=== PATIENT | female | born 1940 | race Caucasian/White ===

== ENCOUNTER 2018-11-17 20:14 | Emergency (ER) | payer MEDICARE ==
[~2018-11-17] VITALS: Ht 165.1 cm; Wt 54.9 kg
[2018-11-17 20:20] VITALS: BP 120/49
--- NOTE | 2018-11-17 20:45 | ER.PDOC ---
General Chief Complaint: Requesting Medical Care Stated Complaint: BLOOD SUGAR LEVEL OFF TRAVEL OUT OF US: No Time seen by MD: 20:34 Source: patient Exam Limitations: no limitations History of Present Illness Initial Comments Pt is here, she was sent by BM, pt is upset, does not want to be seen, she expected BM would be here waiting for her, has no complaints whatsoever and does not want to give a history Timing/Duration: unsure Severity: mild Associated Symptoms: denies symptoms Allergies: Coded Allergies: codeine (Verified Allergy, Unknown, 03/29/17) Home Meds Reported Medications Carvedilol 25MG (COREG 25MG) 25 Mg Tablet, 1 TAB PO BID, #60 TAB 5 Refills 05/27/16 Pantoprazole Sodium (PANTOPRAZOLE SODIUM) 40 Mg Tablet.dr, 1 TAB PO DAILY, #30 TAB 3 Refills 05/27/16 Atorvastatin 40MG (LIPITOR 40MG) 40 Mg Tablet, 1 TAB PO HS, #90 TAB 1 Refill 05/27/16 Glyburide/Metformin Hcl (GLYBURIDE-METFORMIN 5-500 MG) 1 Each Tablet, 1 EACH PO DAILY, TABLET 05/27/16 Spironolactone 50MG (ALDACTONE 50MG) 50 Mg Tablet, 1 TAB PO DAILY, #30 TAB 3 Refills 05/27/16 Furosemide (FUROSEMIDE) 40 Mg Tablet, 1 TAB PO DAILY, #30 TAB 5 Refills 05/27/16 Sacubitril/Valsartan (Entresto 49 mg-51 mg Tablet) 1 Each Tablet, 1 EACH PO DAILY, TABLET 05/27/16 Levothyroxine Sodium (LEVOTHYROXINE SODIUM) 75 Mcg Tablet, 1 TAB PO DAILY, #30 TAB 5 Refills 05/27/16 Past Medical History Surgical History: coronary bypass surgery, pacemaker/ICD Social History Drug Use: none Review of Systems All Other Systems: Reviewed and Negative Physical Exam Comments Pt does no allow examination Results/Orders Results/Orders Orders - DANA SPRING MD Cbc With Auto Diff (11/17/18 21:02) Comprehensive Metabolic Panel (11/17/18 21:02) Amylase (11/17/18 21:02) Lipase (11/17/18 21:02) PT (11/17/18 21:02) Partial Thromboplastin Time. (11/17/18 21:02) Urinalysis (11/17/18 21:02) Vital Signs Date Time Temp Pulse Resp B/P (MAP) Pulse Ox O2 Delivery O2 Flow Rate FiO2 10/12/18 00:42 66 Laboratory Tests Test 11/17/18 21:07 White Blood Count 7.1 10^3/uL (4.5-11.0) Red Blood Count 3.81 10^6/uL (4.00-5.20) L Hemoglobin 11.8 g/dL (12.0-15.0) L Hematocrit 33.8 % (36.0-46.0) L Mean Corpuscular Volume 88.7 fL (78-100) Mean Corpuscular Hemoglobin 31.0 pg (26-34) Mean Corpuscular Hemoglobin Concent 34.9 g/dL (33-37) Red Cell Distribution Width 12.4 % (11.5-14.5) Platelet Count 183 10^3/uL (150-400) Mean Platelet Volume 10.5 fL (7.8-11.0) Neutrophils (%) (Auto) 73.0 % (41.0-85.0) Lymphocytes (%) (Auto) 19.1 % (24.0-44.0) L Monocytes (%) (Auto) 7.4 % (5.0-12.0) Neutrophils # (Auto) 5.2 10^3/uL (1.8-7.7) Lymphocytes # (Auto) 1.4 10^3/uL (1.0-4.8) Monocytes # (Auto) 0.5 10^3/uL (0.3-0.8) Absolute Immature Granulocyte (auto 0 10^3 u/L (0-2) Immature Granulocytes % 0.00 % (0.00-0.50) Eosinophils % 0.1 % (0.0-5.0) Basophils % 0.4 % (0.0-0.2) H Basophils # 0.0 10^3/uL (0.0-0.1) Eosinophil Count 0.0 10^3/uL (0.0-0.2) Prothrombin Time 11.6 SEC (9.8-11.9) Prothrombin Time INR (Non-Therap) 1.2 PTT 25.1 SEC (24.67-30.72) Sodium Level 136 mmol/L (132-145) Potassium Level 4.5 mmol/L (3.6-5.2) Chloride Level 98.0 mmol/L (96-109) Carbon Dioxide Level 30.1 mmol/L (20.0-32) Anion Gap 12.4 Blood Urea Nitrogen 31 mg/dL (7-18) H Creatinine 1.40 mg/dL (0.59-1.40) Estimated GFR () 44.1 (>/=60) BUN/Creatinine Ratio 22.0 Glucose Level 237 mg/dL (70-110) H Calcium Level 9.5 mg/dL (8.4-10.5) Total Bilirubin 0.6 mg/dL (0.2-1.0) Aspartate Amino Transferase (AST) 16 U/L (0-35) Alanine Aminotransferase (ALT) 16 U/L (12-78) Alkaline Phosphatase 60 U/L (50-136) Total Protein 6.8 g/dL (6.4-8.2) Albumin 3.9 g/dL (3.4-5.0) Globulin 2.9 Amylase Level 109 U/L (25-115) Lipase 228 U/L (114-286) Progress Progress Normal labs Departure Time of Disposition: 21:54 Disposition: 01 HOME, SELF-CARE Impression: Primary Impression: Well adult exam Condition: Stable Referrals: ABDIRASHID VELÁZQUEZ MANUFACTURING DIRECTOR (PCP) PRIMARY CARE PROVIDER Duration or Time Spent with Pa: DANA DAVISON MD Nov 17, 2018 20:45
[2018-11-17 21:18] LABS: BASOPHIL % 0.4 % (0.0-0.2); EOSINOPHIL % 0.1 % (0.0-5.0); HEMOGLOBIN 11.8 g/dL (12.0-15.0); LYMPHOCYTES # 1.4 10^3/uL (1.0-4.8); LYMPHOCYTES % 19.1 % (24.0-44.0); MEAN CELL HGB CONCENTRATION 34.9 g/dL (33-37); MEAN CORP VOLUME 88.7 fL (78-100); MEAN PLATELET VOLUME 10.5 fL (7.8-11.0); MONOCYTES # 0.5 10^3/uL (0.3-0.8); MONOCYTES % 7.4 % (5.0-12.0); NEUTROPHIL # 5.2 10^3/uL (1.8-7.7); RED CELL DISTRIBUTION WIDTH 12.4 % (11.5-14.5); WHITE BLOOD CELL 7.1 10^3/uL (4.5-11.0)
[2018-11-17 21:39] LABS: CALCIUM 9.5 mg/dL (8.4-10.5); CARBON DIOXIDE 30.1 mmol/L (20.0-32)
[2018-11-17 22:00] VITALS: BP 146/59
[2018-11-18 01:50] VITALS: BP 120/49
== END 2018-11-17 22:01 | disposition home or self-care (01) ==
LOC: ER 20:14
DX: Z71.1 Person with feared health complaint in whom no diagnosis is made (principal); Z88.5 Allergy status to narcotic agent; Z95.0 Presence of cardiac pacemaker; Z79.899 Other long term (current) drug therapy
CPT/HCPCS: 80053; 82150; 83690; 85025; 85610; 85730; 99284

== ENCOUNTER → 2018-11-17 | Outpatient (CLI) | payer MEDICARE ==
[~2018-11-17] MED LIST: ATOR40TA PO; CARV25TA PO; FURO40TA4 PO; GLYB1TAB15 PO; LEVO75TA6 PO; PANT40TA5 PO; SACU1TAB7 PO; SPIR50TA PO
[2018-11-17 12:09] LABS: HEMOGLOBIN 12.9 g/dL (12.0-15.0); MEAN CELL HGB 30.9 pg (26-34); MEAN CELL HGB CONCENTRATION 34.5 g/dL (33-37); MEAN CORP VOLUME 89.7 fL (78-100); MEAN PLATELET VOLUME 10.3 fL (7.8-11.0); RED CELL DISTRIBUTION WIDTH 12.4 % (11.5-14.5); WHITE BLOOD CELL 7.5 10^3/uL (4.5-11.0)
[2018-11-17 12:24] LABS: CALCIUM 9.8 mg/dL (8.4-10.5); CARBON DIOXIDE 32.1 mmol/L (20.0-32)
--- NOTE | 2018-11-17 16:25 | DIREP ---
PROCEDURE:CT ABDOMEN/PELVIS W/O CONTRAST COMPARISON:[facility], CR, XRAY CHEST SINGLE VW, 10/11/2018, 08:42 PM. INDICATIONS:R10.12 LUQ PAIN TECHNIQUE:Axial images were created through the abdomen and pelvis without intravenous contrast material. No oral contrast was administered. Sagittal and coronal reconstructions were performed from source images. FINDINGS: LUNG BASES:Cardiomegaly. Pacemaker wire LIVER:Normal. No significant liver lesions are identified. BILIARY:2 small calcified gallstones PANCREAS:Normal. No lesion, fluid collection, ductal dilatation, or atrophy. SPLEEN:Normal. No enlargement or focal lesion. ADRENALS:Normal. No mass or enlargement. URINARY TRACT:Renal arterial calcifications including intrarenal components. No nephrolithiasis or hydronephrosis. No ureteric stones detected AORTA/VASCULAR:Extensive atherosclerotic calcifications in the celiac axis, superior mesenteric artery renal arteries and pelvic branches. RETROPERITONEUM:Normal. No mass or adenopathy. BOWEL/MESENTERY:Normal. There is no intestinal obstruction, free fluid, free air or mesenteric inflammatory changes. ABDOMINAL WALL:Normal. No mass or hernia. PELVIC ORGANS:Normal. No visible mass. Pelvic organs appropriate for patient age. BONES:No compression fractures OTHER:Negative. CONCLUSION:No focal inflammation or abnormal fluid collection. Extensive vasculopathy based on dense atherosclerotic calcifications in abdominal and pelvic vasculature. Cardiomegaly. Two small gallstones. No ductal dilatation. Dictated by: Ronna Hazel MD on 11/17/2018 at 04:17 PM
== END | disposition home or self-care (01) ==
LOC: RAD 11:48
PROVIDERS: ATTEND Nurse Practitioner Family
DX: K80.20 Calculus of gallbladder without cholecystitis without obstruction (principal); I70.0 Atherosclerosis of aorta; I51.7 Cardiomegaly; Z95.0 Presence of cardiac pacemaker
CPT/HCPCS: 36415; 74176; 80053; 82150; 83690; 85027

== ENCOUNTER → 2018-11-18 | Outpatient (CLI) | payer MEDICARE | END | disposition home or self-care (01) | LOC: LAB 12:51 | PROVIDERS: ATTEND Nurse Practitioner Family | DX: K92.1 Melena (principal) | CPT/HCPCS: 82272 ==

== ENCOUNTER 2018-11-19 10:05 | Emergency (ER) | payer MEDICARE ==
[~2018-11-19] VITALS: Ht 165.1 cm; Wt 54.9 kg
--- NOTE | 2018-11-19 10:15 | NUR ---
arrival patient ambulated to er 4 accompanied by spouse and this nurse. gait steady. patient guarding abd. Patient c/o of abd pain to RLQ. has been in 2 x prior with the same complaint. triage done. Dr. Salazar in at bedside assessing patient.
[2018-11-19 10:25] VITALS: BP 144/65
[2018-11-19] MEDS ORDERED: ZOFRAN ODT SL STA (10:35)
--- NOTE | 2018-11-19 10:40 | ER.PDOC ---
General Chief Complaint: Abdomen Pain Stated Complaint: ABD PAIN Time seen by MD: 10:33 Source: patient Exam Limitations: no limitations History of Present Illness Timing/Duration: 1 week Severity/Quality: moderate, cramping Radiation: no radiation Exacerbated by: food Allergies: Coded Allergies: codeine (Verified Allergy, Unknown, 03/29/17) Home Meds Reported Medications Carvedilol 25MG (COREG 25MG) 25 Mg Tablet, 1 TAB PO BID, #60 TAB 5 Refills 05/27/16 Pantoprazole Sodium (PANTOPRAZOLE SODIUM) 40 Mg Tablet.dr, 1 TAB PO DAILY, #30 TAB 3 Refills 05/27/16 Atorvastatin 40MG (LIPITOR 40MG) 40 Mg Tablet, 1 TAB PO HS, #90 TAB 1 Refill 05/27/16 Glyburide/Metformin Hcl (GLYBURIDE-METFORMIN 5-500 MG) 1 Each Tablet, 1 EACH PO DAILY, TABLET 05/27/16 Spironolactone 50MG (ALDACTONE 50MG) 50 Mg Tablet, 1 TAB PO DAILY, #30 TAB 3 Refills 05/27/16 Furosemide (FUROSEMIDE) 40 Mg Tablet, 1 TAB PO DAILY, #30 TAB 5 Refills 05/27/16 Sacubitril/Valsartan (Entresto 49 mg-51 mg Tablet) 1 Each Tablet, 1 EACH PO DAILY, TABLET 05/27/16 Levothyroxine Sodium (LEVOTHYROXINE SODIUM) 75 Mcg Tablet, 1 TAB PO DAILY, #30 TAB 5 Refills 05/27/16 Vital Signs First Vital Signs Date Time Temp Pulse Resp B/P (MAP) Pulse Ox O2 Delivery O2 Flow Rate FiO2 11/18/18 01:50 67 Last Vital Signs Date Time Temp Pulse Resp B/P (MAP) Pulse Ox O2 Delivery O2 Flow Rate FiO2 11/18/18 01:50 67 Past Medical History Medical History: arrhythmia, cardiac problems, congestive heart failure, diabetes, hypertension, thyroid disease Surgical History: cardiac cath, angioplasty, coronary bypass surgery, p acemaker/ICD, stent LMP (females 10-50): postmenopause Social History Smoking: non-smoker Alcohol Use: none Drug Use: none Reviewed Nursing Reviewed: Vital Signs, Abn. Noted All Other Systems: Reviewed and Negative Physical Exam General Appearance: No Apparent Distress, WD/WN HEENT: PERRL/EOMI, Normal ENT Inspection, TMs Normal, Pharynx Normal Neck: Non-Tender, Full Range of Motion, Supple, Normal Inspection Respiratory: chest non-tender, lungs clear, normal breath sounds, no respiratory distress, no accessory muscle use Cardiovascular: Normal Peripheral Pulses, Regular Rate, Rhythm, No Edema, No Gallop, No JVD, No Murmur 1 - tender Gastrointestinal: Tenderness (periumbilical) Back: Normal Inspection, No CVA Tenderness, No Vertebral Tenderness Extremities: Normal Range of Motion, Non-Tender, Normal Inspection, No Pedal Edema, No Calf Tenderness, Normal Capillary Refill, Pelvis Stable Neurologic/Psychiatric: braille transcriber II-XII NML as Tested, No Motor/Sensory Deficits, Alert, Normal Mood/Affect, Oriented x 3 Skin: Normal Color, Warm/Dry Lymphatic: No Adenopathy Results/Orders Results/Orders Orders - ALBERTO MENDOZA MD Cbc With Auto Diff (11/19/18 10:23) Comprehensive Metabolic Panel (11/19/18 10:23) Amylase (11/19/18 10:23) Lipase (11/19/18 10:23) Helicobacter Pylori (11/19/18 10:23) PT (11/19/18 10:23) Partial Thromboplastin Time. (11/19/18 10:23) Urinalysis (11/19/18 10:23) Cta Abdominal Arteries (11/19/18 10:23) Course Sepsis Screening Results: Posi: POSITIVE SEPSIS RISK Duration or Total Time Spent w: 20 Sepsis Infection Criteria Pres: None O2 Sat by Pulse Oximetry: 99 Departure Time of Disposition: 13:33 Disposition: 01 HOME, SELF-CARE Impression: Primary Impression: Pancreatitis Additional Impression: Mesenteric ischemia Condition: Improved Referrals: ABDIRASHID VELÁZQUEZ BAND CUTTER (PCP) PRIMARY CARE PROVIDER Comments admission offered, patient deferred it Duration or Time Spent with Pa: 1 hr Problem Qualifiers ALBERTO MENDOZA MD Nov 19, 2018 10:40
[2018-11-19 10:43] LABS: BASOPHIL % 0.4 % (0.0-0.2); EOSINOPHIL % 0.4 % (0.0-5.0); HEMOGLOBIN 12.7 g/dL (12.0-15.0); LYMPHOCYTES # 1.2 10^3/uL (1.0-4.8); LYMPHOCYTES % 23.8 % (24.0-44.0); MEAN CELL HGB 31.1 pg (26-34); MEAN CELL HGB CONCENTRATION 34.9 g/dL (33-37); MEAN PLATELET VOLUME 10.4 fL (7.8-11.0); MONOCYTES # 0.3 10^3/uL (0.3-0.8); MONOCYTES % 6.3 % (5.0-12.0); NEUTROPHIL # 3.5 10^3/uL (1.8-7.7); NEUTROPHILS % 69.1 % (41.0-85.0); RED CELL DISTRIBUTION WIDTH 12.3 % (11.5-14.5); WHITE BLOOD CELL 5.1 10^3/uL (4.5-11.0)
--- NOTE | 2018-11-19 10:51 | PCM.EKG ---
[facility] Test Date: 2018-11-19 Test Time: 10:51:14 Pat Name: SAMUEL POSADA Department: Room: Gender: F Cocoa Roaster: DUSTIN : 1940 Requested By: ALBERTO MENDOZA Order Number: [id number] Reading MD: Measurements Intervals [place] Rate: 65 P: 73 NC: 280 QRS: -67 QRSD: 146 T: 93 QT: 444 QTc: 461 Interpretive Statements Sinus rhythm with 1st degree AV block Left axis deviation Left ventricular hypertrophy with QRS widening and repolarization abnormality Abnormal ECG Compared to ECG 10/11/2018 20:14:42 Left-axis deviation now present Left ventricular hypertrophy now present Early repolarization now present Left bundle-branch block no longer present Please click the below link to view image of tracing.
[2018-11-19] MEDS ORDERED: ZOFRAN ODT ONE (10:54)
[2018-11-19] MEDS ORDERED: NORCO 7.5MG PO STA (10:54)
[2018-11-19] MEDS ORDERED: NORCO 7.5MG PO ONE (10:55)
--- NOTE | 2018-11-19 11:02 | NUR ---
pain medication patient refused pain medication. "I dont need that right now. I don't want anythign thats gonna upset my stomach." Patient explained that zofran will help with getting an upset stomach. Patietn continued to refuse. notified.
[2018-11-19 11:13] LABS: CARBON DIOXIDE 30.3 mmol/L (20.0-32)
[2018-11-19 11:14] LABS: CALCIUM 9.5 mg/dL (8.4-10.5)
[2018-11-19 11:52] LABS: BILIRUBIN,URINE NEGATIVE (NEGATIVE); UROBILINOGEN,URINE NORMAL (NEGATIVE)
[2018-11-19 11:53] LABS: APPEARANCE,URINE CLEAR (CLEAR); UA COLOR STRAW (YELLOW)
[2018-11-19 12:25] VITALS: BP 125/68
[2018-11-19] MEDS ORDERED: NITRO-DUR 0.4MG PATCH TD ONE (12:27)
--- NOTE | 2018-11-19 13:14 | DIREP ---
PROCEDURE:CTA ABDOMEN WITH CONTRAST COMPARISON:[facility], CT, CT ABD/PELVIS W/O, 11/17/2018, 12:37 PM. INDICATIONS:Chronic mesenteric ischemia. TECHNIQUE:After obtaining the patient's consent, CTA images of the abdomen and pelvis were created with non-ionic intravenous contrast, and with multi-planar/3-D imaging to optimize visualization of vascular anatomy. FINDINGS: AORTA/VASCULAR:No aortic aneurysmal dilatation or evidence of dissection. Diffuse atherosclerotic calcification. Origins of the celiac artery and ESSIE appear patent. SMA atherosclerotic calcification contributes to approximately 60-70% stenosis at the origin. Otherwise, remainder of the visualized portions of the proximal SMA appear patent. Approximately 75% stenosis of the origin of the left renal artery. Two right renal arteries are identified arising from the abdominal aorta. LIVER:No focal lesion identified. BILIARY:Layering gallbladder calculi without evidence of surrounding inflammatory change. Prominent CBD, measuring up to 9 mm. No evidence radiopaque stone. PANCREAS:No focal lesion or surrounding inflammatory change. SPLEEN:Normal. KIDNEYS:Bilateral parapelvic cysts. Kidneys enhance symmetrically without hydronephrosis. No nephrolithiasis or ureteral calculi. Visualized portions of the urinary bladder within normal limits. ADRENALS:Normal. RETROPERITONEUM:No mass or adenopathy. BOWEL/MESENTERY:No free air. Oral contrast opacifies the distal colon. No small bowel dilatation to suggest obstruction. Appendix not definitively identified. Fecal residue seen throughout colon. Colonic diverticulosis without evidence of diverticulitis. ABDOMINAL WALL:No mass or hernia. Probable small anterior abdominal wall lipoma. PELVIC ORGANS:No visible mass. Pelvic organs appropriate for patient's age. BONES:Degenerative change without evidence of acute osseous abnormality. OTHER:None. CONCLUSION: 1. 60-70% stenosis of the SMA origin. Remainder of the visualized portions are patent. 2. 75% stenosis of the origin of the left renal artery. Two right renal arteries are identified. 3. No bowel obstruction. Diverticulosis without evidence of diverticulitis. 4. Cholelithiasis without evidence of cholecystitis. 5. Additional findings as described. This report was called by telephone at 12:55 pm on November 19, 2018 to Jordan Salazar. Dictated by: Elijah Parsons MD on 11/19/2018 at 12:40 PM
[2018-11-19 13:50] VITALS: BP 125/68
[2018-11-20] MEDS ORDERED: NITRO-DUR 0.4MG PATCH TD SCH (09:00)
== END 2018-11-19 13:50 | disposition home or self-care (01) ==
LOC: ER 10:05
DX: K80.20 Calculus of gallbladder without cholecystitis without obstruction (principal); K85.90 Acute pancreatitis without necrosis or infection, unspecified; K55.059 Acute (reversible) ischemia of intestine, part and extent unspecified; E07.9 Disorder of thyroid, unspecified; E11.9 Type 2 diabetes mellitus without complications; I11.0 Hypertensive heart disease with heart failure; I50.9 Heart failure, unspecified; Z79.899 Other long term (current) drug therapy; Z88.5 Allergy status to narcotic agent; Z95.0 Presence of cardiac pacemaker; Z95.1 Presence of aortocoronary bypass graft
CPT/HCPCS: 36415 ×2; 75635; 80053; 82010; 82150; 82550; 82553; 82803; 83690; 84484; 85025; 85610; 85730; 86677; 93005; 99285; Q0162; Q9965

== ENCOUNTER 2018-12-04 10:14 | Emergency (ER) | payer MEDICARE ==
[~2018-12-04] VITALS: Ht 165.1 cm; Wt 56.7 kg
[2018-12-04 10:33] VITALS: BP 144/64
--- NOTE | 2018-12-04 10:34 | NUR ---
ARRIVAL PATIENT ARRIVED TO ED5 AMBULATORY, C/O OF RIGHT SHOULDER AND ARM PAIN, PATIENT STATES SHE WAS PUTTING HER DOG ON A LEASH ON THE PORCH WHEN THE DOG PULLED HER DOWN LANDING ON HER RIGHT ARM, SHE FELL TO THE GROUND, DENIES LOC OR ANY OTHER INJURY, CAME TO THE ED FOR EVAL AND XRAY
[2018-12-04] MEDS ORDERED: MORPHINE SULFATE IV STA (10:39)
--- NOTE | 2018-12-04 10:48 | ER.PDOC ---
General Chief Complaint: Trauma Stated Complaint: FALL RT SHOULDER INJURY Time seen by MD: 10:43 Source: patient Exam Limitations: no limitations History of Present Illness Initial Comments Right shoulder/arm pain S/P fall. Got tangled with her dog. No neck pain or headache. No loss of consciousness. Occurred: just prior to arrival Where: home Injuries/Pain Location: upper extremity Context: Tripped Loss of Consciousness: No Loss of Consciousness Associated Symptoms: denies symptoms Allergies: Coded Allergies: codeine (Verified Allergy, Unknown, 03/29/17) MEDS Reported Medications Carvedilol 25MG (COREG 25MG) 25 Mg Tablet, 1 TAB PO BID, #60 TAB 5 Refills 05/27/16 Pantoprazole Sodium (PANTOPRAZOLE SODIUM) 40 Mg Tablet.dr, 1 TAB PO DAILY, #30 TAB 3 Refills 05/27/16 Atorvastatin 40MG (LIPITOR 40MG) 40 Mg Tablet, 1 TAB PO HS, #90 TAB 1 Refill 05/27/16 Glyburide/Metformin Hcl (GLYBURIDE-METFORMIN 5-500 MG) 1 Each Tablet, 1 EACH PO DAILY, TABLET 05/27/16 Spironolactone 50MG (ALDACTONE 50MG) 50 Mg Tablet, 1 TAB PO DAILY, #30 TAB 3 Refills 05/27/16 Furosemide (FUROSEMIDE) 40 Mg Tablet, 1 TAB PO DAILY, #30 TAB 5 Refills 05/27/16 Sacubitril/Valsartan (Entresto 49 mg-51 mg Tablet) 1 Each Tablet, 1 EACH PO DAILY, TABLET 05/27/16 Levothyroxine Sodium (LEVOTHYROXINE SODIUM) 75 Mcg Tablet, 1 TAB PO DAILY, #30 TAB 5 Refills 05/27/16 Past Medical History Medical History: cardiac problems, diabetes Surgical History: cardiac cath, coronary bypass surgery, pacemaker/ICD Social History Smoking: non-smoker Alcohol Use: none Drug Use: none Review of Systems Constitutional: no symptoms reported Respiratory: no symptoms reported Cardiovascular: no symptoms reported Gastrointestinal: no symptoms reported Musculoskeletal: see HPI All Other Systems: Reviewed and Negative Physical Exam General Appearance: No Apparent Distress, WD/WN Head: No Evidence of Injury Ears, Nose, Mouth, Throat: Hearing Grossly Normal, No Evidence of ENT Injury, No Dental Injury Neck: Non-Tender, Normal Alignment, Nexus criteria neg, Normal Inspection Cardiovascular/Respiratory: Regular Rate, Rhythm, No M/R/G, Normal Peripheral Pulses, No JVD, Normal Breath Sounds, No Respiratory Distress Gastrointestinal: Normal Bowel Sounds, No Organomegaly, No Pulsatile Mass, Non Tender, Soft Back: Normal Inspection, No CVA Tenderness, No Vertebral Tenderness Extremities: Tenderness (right arm with swelling and deformity.) Neurologic/Psychiatric: crosstie inspector II-XII NML as Tested, No Motor/Sensory Deficits, Alert, Normal Mood/Affect, Oriented x 3 Angeline Coma Score Best Eye Response: (4) Open Spontaneously Best Verbal Response: (5) Oriented Best Motor Response: (6) Obeys Commands Results/Orders Results/Orders Orders - SHANE DUARTE MD Xr Shoulder Rt 2v (12/04/18 10:39) Morphine Sulfate (Morphine Sulfate) (12/04/18 10:39) Ct Rt Upper Ext Wo (12/04/18 11:50) Vital Signs Date Time Temp Pulse Resp B/P (MAP) Pulse Ox O2 Delivery O2 Flow Rate FiO2 12/04/18 10:33 97.2 63 18 144/64 (90) 99 Room Air 97.2 12/04/18 10:31 18 12/04/18 10:30 97.2 63 18 99 Room Air 97.2 12/04/18 10:29 97.2 63 18 97.2 11/19/18 13:50 76 Administered Medications Medications (Trade) Dose Ordered Sig/Mayur Route PRN Reason Start Time Stop Time Status Last Admin Dose Admin Morphine Sulfate (Morphine Sulfate) 2 mg STAT STAT IV 12/04/18 10:39 12/04/18 10:43 DC 12/04/18 10:[address] Nguyễn came and saw patient in the ED. She will follow up with him in 3 days. EKG/XRAY/CT/US XRAY Comments: Comminuted impacted fracture of the proximal humerus. Departure Time of Disposition: 11:52 Disposition: 01 HOME, SELF-CARE Impression: Primary Impression: Humerus fracture Condition: Stable Referrals: ABDIRASHID VELÁZQUEZ FLANGE TURNER (PCP) PRIMARY CARE PROVIDER Additional Instructions: Take medication as prescribed F/U with Dr. Nguyễn on 11/07/18 , call for appointment time. Duration or Time Spent with Pa: 60 mins Problem Qualifiers Primary Impression: Humerus fracture Encounter type: initial encounter Humerus Location: proximal Fracture type: closed Fracture morphology: other fracture Fracture alignment: displaced Laterality: right Qualified Codes: S42.291A - Other displaced fracture of upper end of right humerus, initial encounter for closed fracture SHANE DUARTE MD Dec 04, 2018 10:48
--- NOTE | 2018-12-04 11:29 | NUR ---
RIZWAN DOCTOR FELICIA CALLED DOCTOR ASTORGA, HE WILL COME TO THE ED TO SEE PATIENT.
--- NOTE | 2018-12-04 11:34 | DIREP ---
PROCEDURE:XRAY SHOULDER MIN 2 VWS-RT COMPARISON:[facility], , XRAY CHEST SINGLE VW, 10/11/2018, 08:42 PM. INDICATIONS:Pain S/P fall FINDINGS: BONES:Impacted comminuted fracture of the proximal right humerus. JOINTS:Normal glenohumeral and acromioclavicular joints. No evidence for dislocation. SOFT TISSUES:Rounded calcification along the lateral aspect of the chest, this is chronic OTHER:Normal. CONCLUSION:Comminuted impacted fracture of the proximal humerus. Dictated by: Michel Huizar MD on 12/04/2018 at 11:33 AM
[2018-12-04] MEDS ORDERED: NORCO 10MG PO STA (11:57)
[2018-12-04] MEDS ORDERED: NORCO 10MG PO ONE (12:06)
--- NOTE | 2018-12-04 12:23 | HPH ---
ADMIT DATE: 12/04/2018 CHIEF COMPLAINT: Painful right shoulder. HISTORY OF PRESENT ILLNESS: The patient is a 78-year-old female still very active, fell coming out of some steps at her home today when she tripped up on her dog and landed on the right shoulder. She was seen in the emergency room by Dr. Moran whose exam and x-rays revealed a displaced comminuted right proximal humerus fracture. PHYSICAL EXAMINATION: Shows that she has diffuse swelling about the shoulder. She has no fracture blisters or open wounds. The radial pulse is 2+. She has normal sensation about the right hand. The radial nerve was intact. IMAGING STUDIES: Her x-rays show she got a comminuted displaced right proximal humerus fracture. ASSESSMENT: Displaced right proximal humerus fracture, closed with significant swelling. PLAN: The patient will get a CT scan today with 3D reconstruction. She will be placed in a shoulder immobilizer. I gave her a prescription for tramadol for the pain. We talked about using ice 3-4 times a day and to sleep in a recliner. She will be seen in my office in approximately 2 days. Donte Nguyễn MD DR: PARVEZ/mary kay JOB# [id number]
--- NOTE | 2018-12-04 12:38 | DIREP ---
PROCEDURE:CT UPPER EXTREMITY-RT W/O COMPARISON:None. INDICATIONS:Right humeral fracture TECHNIQUE:Multi-planar CT images of the upper extremity were created without intravenous contrast. FINDINGS: BONES:There is a comminuted fracture of the proximal humerus. The fracture appears to spare the humeral articular surface. There multiple fragments along the biceps groove. Fracture of the scapula is not identified. Loose body is not seen. There preexisting degenerative changes. Apparent rotator cuff repair. Distal clavicle intact. SOFT TISSUES:Mild soft tissue swelling and hematoma. OTHER:Negative. CONCLUSION:Comminuted impacted fracture of the proximal humerus Dictated by: Michel Huizar MD on 12/04/2018 at 12:32 PM
[2018-12-04 12:45] VITALS: BP 132/64
[2018-12-04 12:46] VITALS: BP 144/64
== END 2018-12-04 12:46 | disposition home or self-care (01) ==
LOC: ER 10:14
DX: S42.291A Other displaced fracture of upper end of right humerus, initial encounter for closed fracture (principal); E11.9 Type 2 diabetes mellitus without complications; Z79.899 Other long term (current) drug therapy; Z88.5 Allergy status to narcotic agent; Z95.0 Presence of cardiac pacemaker; Z95.1 Presence of aortocoronary bypass graft; W01.0XXA Fall on same level from slipping, tripping and stumbling without subsequent striking against object, initial encounter; Y93.89 Activity, other specified; Y92.89 Other specified places as the place of occurrence of the external cause; Y99.8 Other external cause status
CPT/HCPCS: 29105; 73200; 96374; 99285; 73030-RT

== ENCOUNTER 2018-12-12 15:05 | Emergency (ER) | payer MEDICARE ==
[~2018-12-12] VITALS: Ht 154.9 cm; Wt 60.8 kg
[2018-12-12 15:24] VITALS: BP 123/77
--- NOTE | 2018-12-12 15:26 | ER.PDOC ---
General Chief Complaint: Requesting Medical Care Stated Complaint: SHOULDER PAIN Time seen by MD: 15:33 Source: patient Exam Limitations: no limitations History of Present Illness Initial Comments TRANSIENT DYSPNEA, NONE NOW BEING TREATED FIR FRACTURE NECK HUMERUS R Occurred: yesterday Where: home Severity: mild Context: fall Associated Symptoms: unable to move shoulder Allergies: Coded Allergies: codeine (Verified Allergy, Unknown, 03/29/17) Home Meds Reported Medications Carvedilol 25MG (COREG 25MG) 25 Mg Tablet, 1 TAB PO BID, #60 TAB 5 Refills 05/27/16 Pantoprazole Sodium (PANTOPRAZOLE SODIUM) 40 Mg Tablet.dr, 1 TAB PO DAILY, #30 TAB 3 Refills 05/27/16 Atorvastatin 40MG (LIPITOR 40MG) 40 Mg Tablet, 1 TAB PO HS, #90 TAB 1 Refill 05/27/16 Glyburide/Metformin Hcl (GLYBURIDE-METFORMIN 5-500 MG) 1 Each Tablet, 1 EACH PO DAILY, TABLET 05/27/16 Spironolactone 50MG (ALDACTONE 50MG) 50 Mg Tablet, 1 TAB PO DAILY, #30 TAB 3 Refills 05/27/16 Furosemide (FUROSEMIDE) 40 Mg Tablet, 1 TAB PO DAILY, #30 TAB 5 Refills 05/27/16 Sacubitril/Valsartan (Entresto 49 mg-51 mg Tablet) 1 Each Tablet, 1 EACH PO DAILY, TABLET 05/27/16 Levothyroxine Sodium (LEVOTHYROXINE SODIUM) 75 Mcg Tablet, 1 TAB PO DAILY, #30 TAB 5 Refills 05/27/16 Past Medical History Surgical History: cardiac cath, coronary bypass surgery, pacemaker/ICD Social History Drug Use: none Reviewed Nursing Reviewed: Vital Signs, Abn. Noted Review of Systems All Other Systems: Reviewed and Negative Physical Exam General Appearance: Alert, No Apparent Distress Shoulder: swelling, ecchymosis, limited ROM Upper Extremities: uninjuried below shoulder Neuro: sensation nml, motor nml Vascular: no vascular compromise Skin: warm/dry Head/ENT: nml inspection, pharynx nml Neck/Back: non-tender, nml inspection, painless ROM Respiratory: chest non-tender, breath sounds nml CVS: reg rate & rhythm, heart sounds nml Abdomen: non-tender, no organomegaly Results/Orders Results/Orders Vital Signs Date Time Temp Pulse Resp B/P (MAP) Pulse Ox O2 Delivery O2 Flow Rate FiO2 12/04/18 12:46 207.0 63 12/04/18 12:45 97.2 Departure Time of Disposition: 16:00 Disposition: 01 HOME, SELF-CARE Impression: Primary Impression: Fx humeral neck Condition: Stable Referrals: ABDIRASHID VELÁZQUEZ CRM BUSINESS ANALYST (PCP) PRIMARY CARE PROVIDER Duration or Time Spent with Pa: 16 MIN ALBERTO MENDOZA MD Dec 12, 2018 15:26
[2018-12-12] MEDS ORDERED: NORCO 5MG PO STA (15:37)
[2018-12-12] MEDS ORDERED: ZOFRAN ODT ONE (15:37)
[2018-12-12] MEDS ORDERED: ZOFRAN ODT SL STA (15:37)
[2018-12-12] MEDS ORDERED: NORCO 5MG PO ONE (15:38)
[2018-12-12 15:48] VITALS: BP 123/77
== END 2018-12-12 15:50 | disposition home or self-care (01) ==
LOC: ER 15:05
DX: S42.201A Unspecified fracture of upper end of right humerus, initial encounter for closed fracture (principal); Z95.818 Presence of other cardiac implants and grafts; Z95.1 Presence of aortocoronary bypass graft; Z88.5 Allergy status to narcotic agent; Z95.0 Presence of cardiac pacemaker; Z79.899 Other long term (current) drug therapy; W19.XXXA Unspecified fall, initial encounter; Y93.89 Activity, other specified; Y92.098 Other place in other non-institutional residence as the place of occurrence of the external cause; Y99.8 Other external cause status
CPT/HCPCS: 99283; Q0162

== ENCOUNTER 2019-01-30 13:03 | Emergency (ER) | payer MEDICARE ==
[~2019-01-30] VITALS: Ht 165.1 cm; Wt 54.4 kg
[2019-01-30 13:23] VITALS: BP 146/66
--- NOTE | 2019-01-30 13:33 | ER.PDOC ---
General Chief Complaint: Abdomen Pain Stated Complaint: LOWER LEFT AB PAIN Time seen by MD: 13:25 Source: patient Exam Limitations: no limitations History of Present Illness Initial Comments Pt states she has been having LLQ abdominal pain for about 1 week, not at the moment, seen in [place], a scan was done and she was given medicine for constipation. She had pain on and off last night, but, is gone now. She is asymptomatic. Timing/Duration: 1 week Severity/Quality: mild Radiation: no radiation Associated Symptoms: denies symptoms Allergies: Coded Allergies: codeine (Verified Allergy, Unknown, 03/29/17) Home Meds Reported Medications Carvedilol 25MG (COREG 25MG) 25 Mg Tablet, 1 TAB PO BID, #60 TAB 5 Refills 05/27/16 Pantoprazole Sodium (PANTOPRAZOLE SODIUM) 40 Mg Tablet.dr, 1 TAB PO DAILY, #30 TAB 3 Refills 05/27/16 Atorvastatin 40MG (LIPITOR 40MG) 40 Mg Tablet, 1 TAB PO HS, #90 TAB 1 Refill 05/27/16 Glyburide/Metformin Hcl (GLYBURIDE-METFORMIN 5-500 MG) 1 Each Tablet, 1 EACH PO DAILY, TABLET 05/27/16 Spironolactone 50MG (ALDACTONE 50MG) 50 Mg Tablet, 1 TAB PO DAILY, #30 TAB 3 Refills 05/27/16 Furosemide (FUROSEMIDE) 40 Mg Tablet, 1 TAB PO DAILY, #30 TAB 5 Refills 05/27/16 Sacubitril/Valsartan (Entresto 49 mg-51 mg Tablet) 1 Each Tablet, 1 EACH PO DAILY, TABLET 05/27/16 Levothyroxine Sodium (LEVOTHYROXINE SODIUM) 75 Mcg Tablet, 1 TAB PO DAILY, #30 TAB 5 Refills 05/27/16 Vital Signs First Vital Signs Date Time Temp Pulse Resp B/P (MAP) Pulse Ox O2 Delivery O2 Flow Rate FiO2 12/12/18 15:48 67 01/30/19 13:18 97.7 16 01/30/19 13:18 100 Room Air 01/30/19 13:23 146/66 (92) Last Vital Signs Date Time Temp Pulse Resp B/P (MAP) Pulse Ox O2 Delivery O2 Flow Rate FiO2 01/30/19 13:23 97.7 69 16 146/66 (92) 100 Room Air Past Medical History Medical History: coronary artery disease, diabetes, GERD, high cholesterol, hypertension Surgical History: coronary bypass surgery Social History Smoking: non-smoker Alcohol Use: none Drug Use: none Gastrointestinal: see HPI All Other Systems: Reviewed and Negative Physical Exam General Appearance: No Apparent Distress, WD/WN HEENT: PERRL/EOMI, Normal ENT Inspection, TMs Normal, Pharynx Normal Neck: Non-Tender, Full Range of Motion, Supple, Normal Inspection Respiratory: chest non-tender, lungs clear, normal breath sounds, no respir atory distress, no accessory muscle use Cardiovascular: Normal Peripheral Pulses, Regular Rate, Rhythm, No Edema, No Gallop, No JVD, No Murmur Gastrointestinal: Normal Bowel Sounds, Non Tender, Soft Back: Normal Inspection, No CVA Tenderness, No Vertebral Tenderness Extremities: Normal Range of Motion, Non-Tender, Normal Inspection, No Pedal Edema, No Calf Tenderness, Normal Capillary Refill, Pelvis Stable Neurologic/Psychiatric: delivery rep II-XII NML as Tested, No Motor/Sensory Deficits, Alert, Normal Mood/Affect, Oriented x 3 Skin: Normal Color, Warm/Dry Lymphatic: No Adenopathy Results/Orders Results/Orders Orders - DANA SPRING MD Urinalysis (01/30/19 13:29) Vital Signs Date Time Temp Pulse Resp B/P (MAP) Pulse Ox O2 Delivery O2 Flow Rate FiO2 01/30/19 13:23 97.7 69 16 146/66 (92) 100 Room Air 01/30/19 13:18 97.7 69 16 100 Room Air 01/30/19 13:18 97.7 69 16 12/12/18 15:48 67 Laboratory Tests Test 01/30/19 13:29 Urine Collection Type VOID Urine Color YELLOW (YELLOW) Urine Appearance CLEAR (CLEAR) Urine Bilirubin NEGATIVE MG/DL (NEGATIVE) Urine Ketones NEGATIVE (NEGATIVE) Urine Specific [place] 1.010 (1.005-1.035) Urine pH 6 (5.0-6.0) Urine Protein NEGATIVE (NEGATIVE) Urine Urobilinogen NORMAL (NEGATIVE) Urine Nitrate NEGATIVE (NEGATIVE) Urine Leukocyte Esterase NEGATIVE (NEGATIVE) Urine Blood NEGATIVE (NEGATIVE) Urine Glucose NORMAL (NEGATIVE) Course Sepsis Screening Results: Posi: POSITIVE SEPSIS RISK Duration or Total Time Spent w: 16 MIN Vitals & review Data Vital Sign - Last 24 Hours 7/01/2301/30/19 01/30/19 01/30/19 15:48 13:18 13:18 13:23 Temp 97.7 97.7 97.7 Pulse 67 69 69 69 Resp 16 16 16 B/P (MAP) 146/66 (92) Pulse Ox 100 100 O2 Delivery Room Air Room Air Laboratory Tests Test 01/30/19 13:29 Urine Collection Type VOID Urine Color YELLOW Urine Appearance CLEAR Urine Bilirubin NEGATIVE MG/DL Urine Ketones NEGATIVE Urine Specific [place] 1.010 Urine pH 6 Urine Protein NEGATIVE Urine Urobilinogen NORMAL Urine Nitrate NEGATIVE Urine Leukocyte Esterase NEGATIVE Urine Blood NEGATIVE Urine Glucose NORMAL Sepsis Infection Criteria Pres: None O2 Sat by Pulse Oximetry: 100 Departure Time of Disposition: 14:18 Disposition: 01 HOME, SELF-CARE Impression: Primary Impression: Constipation Condition: Stable Referrals: ABDIRASHID VELÁZQUEZ YARROW GATHERER (PCP) PRIMARY CARE PROVIDER Duration or Time Spent with Pa: 15 DANA SPRING MD Jan 30, 2019 13:33
[2019-01-30 13:42] LABS: BILIRUBIN,URINE NEGATIVE (NEGATIVE); UROBILINOGEN,URINE NORMAL (NEGATIVE)
[2019-01-30 13:43] LABS: APPEARANCE,URINE CLEAR (CLEAR); UA COLOR YELLOW (YELLOW)
[2019-01-30 14:18] VITALS: BP 146/66
== END 2019-01-30 14:26 | disposition home or self-care (01) ==
LOC: ER 13:03
DX: K59.00 Constipation, unspecified (principal); K21.9 Gastro-esophageal reflux disease without esophagitis; I25.10 Atherosclerotic heart disease of native coronary artery without angina pectoris; I10 Essential (primary) hypertension; E78.00 Pure hypercholesterolemia, unspecified; E11.9 Type 2 diabetes mellitus without complications; Z79.899 Other long term (current) drug therapy; Z88.5 Allergy status to narcotic agent
CPT/HCPCS: 81002; 99283

== ENCOUNTER 2019-02-09 14:38 | Emergency (ER) | payer MEDICARE ==
[~2019-02-09] VITALS: Ht 165.1 cm; Wt 47.6 kg
[2019-02-09 15:09] VITALS: BP 145/77
[2019-02-09 15:32] VITALS: BP 145/77
[2019-02-09 15:38] LABS: BILIRUBIN,URINE NEGATIVE (NEGATIVE); UROBILINOGEN,URINE NORMAL (NEGATIVE)
[2019-02-09 15:41] LABS: APPEARANCE,URINE CLEAR (CLEAR); UA COLOR STRAW (YELLOW)
--- NOTE | 2019-02-09 15:55 | ER.PDOC ---
General Chief Complaint: Lower Back Pain or Injury Stated Complaint: LOWER BACK PAIN Time seen by MD: 15:35 Source: patient Exam Limitations: no limitations History of Present Illness Initial Comments Pt notes back pain past 3 days Timing/Duration: other Severity/Quality: moderate Method of Injury: unknown Modifying Factors: improves with immobilization, improves with rest Associated Symptoms: lower back pain Allergies: Coded Allergies: codeine (Verified Allergy, Unknown, 03/29/17) Home Meds Reported Medications Carvedilol 25MG (COREG 25MG) 25 Mg Tablet, 1 TAB PO BID, #60 TAB 5 Refills 05/27/16 Pantoprazole Sodium (PANTOPRAZOLE SODIUM) 40 Mg Tablet.dr, 1 TAB PO DAILY, #30 TAB 3 Refills 05/27/16 Atorvastatin 40MG (LIPITOR 40MG) 40 Mg Tablet, 1 TAB PO HS, #90 TAB 1 Refill 05/27/16 Glyburide/Metformin Hcl (GLYBURIDE-METFORMIN 5-500 MG) 1 Each Tablet, 1 EACH PO DAILY, TABLET 05/27/16 Spironolactone 50MG (ALDACTONE 50MG) 50 Mg Tablet, 1 TAB PO DAILY, #30 TAB 3 Refills 05/27/16 Furosemide (FUROSEMIDE) 40 Mg Tablet, 1 TAB PO DAILY, #30 TAB 5 Refills 05/27/16 Sacubitril/Valsartan (Entresto 49 mg-51 mg Tablet) 1 Each Tablet, 1 EACH PO DAILY, TABLET 05/27/16 Levothyroxine Sodium (LEVOTHYROXINE SODIUM) 75 Mcg Tablet, 1 TAB PO DAILY, #30 TAB 5 Refills 05/27/16 Past Medical History Medical History: coronary artery disease, cardiac problems, congestive heart failure, COPD, diabetes, GERD, high cholesterol, hypertension, thyroid disease Surgical History: cardiac cath, coronary bypass surgery, pacemaker/ICD Social History Smoking: non-smoker Alcohol Use: none Drug Use: none Review of Systems Constitutional: no symptoms reported EENTM: no symptoms reported Respiratory: no symptoms reported Cardiovascular: no symptoms reported Gastrointestinal: no symptoms reported Genitourinary: no symptoms reported Musculoskeletal: back pain Skin: no symptoms reported Psychiatric/Neurological: no symptoms reported Physical Exam General Appearance: No Apparent Distress, WD/WN HEENT: PERRL/EOMI, Normal ENT Inspection, TMs Normal, Pharynx Normal Neck: Non-Tender, Normal Alignment Cardiovascular/Respiratory: Regular Rate, Rhythm, No M/R/G, Normal Peripheral Pulses, No JVD, Normal Breath Sounds, No Respiratory Distress Gastrointestinal: Normal Bowel Sounds, No Organomegaly, No Pulsatile Mass, Non Tender, Soft Back: Normal Inspection, No CVA Tenderness, No Vertebral Tenderness 1 - tender Extremities: No Evidence of Injury, Normal Range of Motion, Non-Tender, No Pedal Edema, Pelvis Stable Neuro/Psych: Alert, hand lens polisher nml/symmetrical, mood/effect nml, No Motor/Sensory Deficits, Relexes nml Skin: Normal Color, Warm/Dry Results/Orders Results/Orders Orders - INLES MCKEON MD Urinalysis (02/09/19 15:33) Vital Signs Date Time Temp Pulse Resp B/P (MAP) Pulse Ox O2 Delivery O2 Flow Rate FiO2 02/09/19 15:32 97.8 70 16 145/77 (99) 100 Room Air 02/09/19 15:09 97.8 70 16 100 Room Air 02/09/19 15:09 97.8 70 16 01/30/19 14:18 69 Laboratory Tests Test 02/09/19 15:13 Urine Collection Type VOID Urine Color STRAW (YELLOW) Urine Appearance CLEAR (CLEAR) Urine Bilirubin NEGATIVE MG/DL (NEGATIVE) Urine Ketones NEGATIVE (NEGATIVE) Urine Specific [place] 1.005 (1.005-1.035) Urine pH 6 (5.0-6.0) Urine Protein NEGATIVE (NEGATIVE) Urine Urobilinogen NORMAL (NEGATIVE) Urine Nitrate NEGATIVE (NEGATIVE) Urine Leukocyte Esterase NEGATIVE (NEGATIVE) Urine Blood NEGATIVE (NEGATIVE) Urine Glucose NORMAL (NEGATIVE) Departure Time of Disposition: 15:54 Disposition: 01 HOME, SELF-CARE Impression: Primary Impression: Lumbar sprain Condition: Stable Referrals: ABDIRASHID VELÁZQUEZ RAILROAD CAR CHECKER (PCP) PRIMARY CARE PROVIDER Additional Instructions: Take otc ibuprofen 600 mg three times a day as needed. Follow up with PCP Duration or Time Spent with Pa: 10 NILES MCKEON MD Feb 09, 2019 15:55
[2019-02-09 16:08] VITALS: BP 145/77
== END 2019-02-09 16:08 | disposition home or self-care (01) ==
LOC: ER 14:38
DX: S33.5XXA Sprain of ligaments of lumbar spine, initial encounter (principal); E07.9 Disorder of thyroid, unspecified; E11.9 Type 2 diabetes mellitus without complications; E78.00 Pure hypercholesterolemia, unspecified; I11.0 Hypertensive heart disease with heart failure; I25.10 Atherosclerotic heart disease of native coronary artery without angina pectoris; I50.9 Heart failure, unspecified; J44.9 Chronic obstructive pulmonary disease, unspecified; K21.9 Gastro-esophageal reflux disease without esophagitis; Z79.899 Other long term (current) drug therapy; Z88.5 Allergy status to narcotic agent; Z95.0 Presence of cardiac pacemaker; Z95.1 Presence of aortocoronary bypass graft; Z79.84 Long term (current) use of oral hypoglycemic drugs; X58.XXXA Exposure to other specified factors, initial encounter; Y93.89 Activity, other specified; Y92.89 Other specified places as the place of occurrence of the external cause; Y99.8 Other external cause status
CPT/HCPCS: 81002; 99283

== ENCOUNTER 2019-04-24 13:29 | Emergency (ER) | payer MEDICARE ==
[~2019-04-24] VITALS: Ht 165.1 cm; Wt 61.2 kg
[2019-04-24 13:29] VITALS: BP 139/61
[2019-04-24 13:42] VITALS: BP 139/61
--- NOTE | 2019-04-24 14:23 | ER.PDOC ---
General Chief Complaint: Requesting Medical Care Stated Complaint: DIFFICULTY BREATHING Time seen by MD: 14:22 Source: patient Exam Limitations: no limitations History of Present Illness Timing/Duration: 1/2 hour Severity: mild Activities at Onset: rest Prior Episodes/Possible Cause: occasional episodes Allergies: Coded Allergies: codeine (Verified Allergy, Unknown, 03/29/17) Home Meds Reported Medications Carvedilol 25MG (COREG 25MG) 25 Mg Tablet, 1 TAB PO BID, #60 TAB 5 Refills 05/27/16 Pantoprazole Sodium (PANTOPRAZOLE SODIUM) 40 Mg Tablet.dr, 1 TAB PO DAILY, #30 TAB 3 Refills 05/27/16 Atorvastatin 40MG (LIPITOR 40MG) 40 Mg Tablet, 1 TAB PO HS, #90 TAB 1 Refill 05/27/16 Glyburide/Metformin Hcl (GLYBURIDE-METFORMIN 5-500 MG) 1 Each Tablet, 1 EACH PO DAILY, TABLET 05/27/16 Spironolactone 50MG (ALDACTONE 50MG) 50 Mg Tablet, 1 TAB PO DAILY, #30 TAB 3 Refills 05/27/16 Furosemide (FUROSEMIDE) 40 Mg Tablet, 1 TAB PO DAILY, #30 TAB 5 Refills 05/27/16 Sacubitril/Valsartan (Entresto 49 mg-51 mg Tablet) 1 Each Tablet, 1 EACH PO DAILY, TABLET 05/27/16 Levothyroxine Sodium (LEVOTHYROXINE SODIUM) 75 Mcg Tablet, 1 TAB PO DAILY, #30 TAB 5 Refills 05/27/16 Past Medical History Medical History: arrhythmia, asthma, congestive heart failure, diabetes, GERD, high cholesterol, hypertension, thyroid disease Surgical History: coronary bypass surgery, pacemaker/ICD LMP (females 10-50): hysterectomy Social History Smoking: non-smoker Alcohol Use: none Drug Use: none Reviewed Nursing Reviewed: Vital Signs, Abn. Noted Review of Systems All Other Systems: Reviewed and Negative Physical Exam General Appearance: No Apparent Distress, WD/WN HEENT: PERRL/EOMI, Normal ENT Inspection, TMs Normal, Pharynx Normal Neck: Non-Tender, Full Range of Motion, Supple, Normal Inspection Respiratory: chest non-tender, lungs clear, normal breath sounds, no respiratory distress, no accessory muscle use Cardiovascular: Normal Peripheral Pulses, Regular Rate, Rhythm, No Edema, No Gallop, No JVD, No Murmur Gastrointestinal: Normal Bowel Sounds, No Organomegaly, No Pulsatile Mass, Non Tender, Soft Extremities: Normal Range of Motion, Non-Tender, Normal Inspection, No Pedal Edema, No Calf Tenderness, Normal Capillary Refill Neurologic/Psychiatric: can tender II-XII NML as Tested, No Motor/Sensory Deficits, Alert, Normal Mood/Affect, Oriented x 3 Skin: Normal Color, Warm/Dry Lymphatic: No Adenopathy Results/Orders Results/Orders Orders - ALBERTO MENDOZA MD Cbc With Auto Diff (04/24/19 14:13) Comprehensive Metabolic Panel (04/24/19 14:13) Creatine Kinase (04/24/19 14:13) Creatine Kinase Mb (04/24/19 14:13) Troponin I (04/24/19 14:13) Probnp B-Type Hoisting Engineer (04/24/19 14:13) PT (04/24/19 14:13) Partial Thromboplastin Time. (04/24/19 14:13) Xr Chest 1v (04/24/19 14:13) Ekg-Routine (04/24/19 14:13) Vital Signs Date Time Temp Pulse Resp B/P (MAP) Pulse Ox O2 Delivery O2 Flow Rate FiO2 04/24/19 13:42 98.0 64 16 139/61 (87) 97 Room Air 04/24/19 13:29 98.0 64 16 04/24/19 13:29 98.0 64 16 97 Room Air Laboratory Tests Test 04/24/19 14:19 White Blood Count 4.2 10^3/uL (4.5-11.0) L Red Blood Count 3.77 10^6/uL (4.00-5.20) L Hemoglobin 11.7 g/dL (12.0-15.0) L Hematocrit 34.7 % (36.0-46.0) L Mean Corpuscular Volume 92.0 fL (78-100) Mean Corpuscular Hemoglobin 31.0 pg (26-34) Mean Corpuscular Hemoglobin Concent 33.7 g/dL (33-37) Red Cell Distribution Width 12.5 % (11.5-14.5) Platelet Count 186 10^3/uL (150-400) Mean Platelet Volume 10.4 fL (7.8-11.0) Neutrophils (%) (Auto) 65.6 % (41.0-85.0) Lymphocytes (%) (Auto) 26.7 % (24.0-44.0) Monocytes (%) (Auto) 6.7 % (5.0-12.0) Neutrophils # (Auto) 2.8 10^3/uL (1.8-7.7) Lymphocytes # (Auto) 1.1 10^3/uL (1.0-4.8) Monocytes # (Auto) 0.3 10^3/uL (0.3-0.8) Absolute Immature Granulocyte (auto 0 10^3 u/L (0-2) Immature Granulocytes % 0.00 % (0.00-0.50) Eosinophils % 0.5 % (0.0-5.0) Basophils % 0.5 % (0.0-0.2) H Basophils # 0.0 10^3/uL (0.0-0.1) Eosinophil Count 0.0 10^3/uL (0.0-0.2) Prothrombin Time 11.0 SEC (9.4-11.5) Prothrombin Time INR (Non-Therap) 1.1 Activated Partial Thromboplast Time 23.2 SEC (24.67-30.72) Sodium Level 140 mmol/L (132-145) Potassium Level 3.3 mmol/L (3.6-5.2) L Chloride Level 100.0 mmol/L (96-109) Carbon Dioxide Level 30.6 mmol/L (20.0-32) Anion Gap 12.7 Blood Urea Nitrogen 35 mg/dL (7-18) H Creatinine 1.25 mg/dL (0.59-1.40) Estimated GFR () 50.2 (>/=60) BUN/Creatinine Ratio 28.0 Glucose Level 168 mg/dL (70-110) H Calcium Level 9.5 mg/dL (8.4-10.5) Total Bilirubin 0.6 mg/dL (0.2-1.0) Aspartate Amino Transferase (AST) 18 U/L (0-35) Alanine Aminotransferase (ALT) 15 U/L (12-78) Alkaline Phosphatase 60 U/L (50-136) Total Creatine Kinase 82 U/L (26-192) Creatine Kinase MB 1.0 ng/mL (0.5-3.6) Troponin I < 0.02 ng/mL (0.00-0.05) Pro-B-Type Natriuretic Peptide 2183 pg/mL (0-450) H Total Protein 7.4 g/dL (6.4-8.2) Albumin 4.3 g/dL (3.4-5.0) Globulin 3.1 EKG/XRAY/CT/US EKG: NSR, no ST T wave changes Course Sepsis Screening Results: Posi: POSITIVE SEPSIS RISK Duration or Total Time Spent w: 10 Vitals & review Data Vital Sign - Last 24 Hours 04/24/19 04/24/19 04/24/19 13:29 13:29 13:42 Temp 98.0 98.0 98.0 Pulse 64 64 64 Resp 16 16 16 B/P (MAP) 139/61 (87) Pulse Ox 97 97 O2 Delivery Room Air Room Air Laboratory Tests Test 04/24/19 14:19 White Blood Count 4.2 10^3/uL Red Blood Count 3.77 10^6/uL Hemoglobin 11.7 g/dL Hematocrit 34.7 % Mean Corpuscular Volume 92.0 fL Mean Corpuscular Hemoglobin 31.0 pg Mean Corpuscular Hemoglobin Concent 33.7 g/dL Red Cell Distribution Width 12.5 % Platelet Count 186 10^3/uL Mean Platelet Volume 10.4 fL Neutrophils (%) (Auto) 65.6 % Lymphocytes (%) (Auto) 26.7 % Monocytes (%) (Auto) 6.7 % Neutrophils # (Auto) 2.8 10^3/uL Lymphocytes # (Auto) 1.1 10^3/uL Monocytes # (Auto) 0.3 10^3/uL Absolute Immature Granulocyte (auto 0 10^3 u/L Immature Granulocytes % 0.00 % Eosinophils % 0.5 % Basophils % 0.5 % Basophils # 0.0 10^3/uL Eosinophil Count 0.0 10^3/uL Prothrombin Time 11.0 SEC Prothrombin Time INR (Non-Therap) 1.1 Activated Partial Thromboplast Time 23.2 SEC Sodium Level 140 mmol/L Potassium Level 3.3 mmol/L Chloride Level 100.0 mmol/L Carbon Dioxide Level 30.6 mmol/L Anion Gap 12.7 Blood Urea Nitrogen 35 mg/dL Creatinine 1.25 mg/dL Estimated GFR () 50.2 BUN/Creatinine Ratio 28.0 Glucose Level 168 mg/dL Calcium Level 9.5 mg/dL Total Bilirubin 0.6 mg/dL Aspartate Amino Transf (AST/SGOT) 18 U/L Alanine Aminotransferase (ALT/SGPT) 15 U/L Alkaline Phosphatase 60 U/L Total Creatine Kinase 82 U/L Creatine Kinase MB 1.0 ng/mL Troponin I < 0.02 ng/mL Pro-B-Type Natriuretic Peptide 2183 pg/mL Total Protein 7.4 g/dL Albumin 4.3 g/dL Globulin 3.1 Sepsis Infection Criteria Pres: None O2 Sat by Pulse Oximetry: 97 Departure Time of Disposition: 16:00 Disposition: 01 HOME, SELF-CARE Impression: Primary Impression: Chronic obstructive pulmonary disease Condition: Improved Referrals: ABDIRASHID VELÁZQUEZ [employer] STUD[employer] TEACHER (PCP) PRIMARY CARE PROVIDER Duration or Time Spent with Pa: ALBERTO JUNE MD Apr 24, 2019 14:23
[2019-04-24 14:26] LABS: BASOPHIL % 0.5 % (0.0-0.2); EOSINOPHIL % 0.5 % (0.0-5.0); LYMPHOCYTES # 1.1 10^3/uL (1.0-4.8); LYMPHOCYTES % 26.7 % (24.0-44.0); MONOCYTES # 0.3 10^3/uL (0.3-0.8); MONOCYTES % 6.7 % (5.0-12.0); NEUTROPHIL # 2.8 10^3/uL (1.8-7.7); NEUTROPHILS % 65.6 % (41.0-85.0); RED CELL DISTRIBUTION WIDTH 12.5 % (11.5-14.5)
--- NOTE | 2019-04-24 14:33 | PCM.EKG ---
[facility] Test Date: 2019-04-24 Test Time: 14:31:59 Pat Name: SAMUEL POSADA Department: Room: Gender: F Belt Turner: OPHELIA : 1940 Requested By: JORDAN SALAZAR Order Number: [id number] Reading MD: Jordan Salazar Measurements Intervals [place] Rate: 61 P: 162 SC: 446 QRS: -68 QRSD: 145 T: 87 QT: 441 QTc: 445 Interpretive Statements Sinus or ectopic atrial rhythm Prolonged SC interval Nonspecific IVCD with LAD Left ventricular hypertrophy Anterior Q waves, possibly due to LVH Abnormal T, consider ischemia, lateral leads Compared to ECG 11/19/2018 10:51:14 Intraventricular conduction delay now present Q waves now present T-wave abnormality now present Sinus rhythm Electronically Signed On 05-10-2019 7:45:46 ANALYTIC PROGRAMMER by Jordan Salazar Please click the below link to view image of tracing.
--- NOTE | 2019-04-24 14:34 | DIREP ---
PROCEDURE:CHEST 1 VIEW COMPARISON:[facility], CR, XRAY SHOULDER MIN 2 VWS-RT, 12/04/2018, 10:58 AM. [facility], CR, XRAY CHEST SINGLE VW, 10/11/2018, 08:42 PM. INDICATIONS:copd exacerbation FINDINGS: LUNGS/PLEURA:No significant pulmonary parenchymal abnormalities. No effusions. VASCULATURE:Normal. Unremarkable pulmonary vasculature. CARDIAC:A left-sided pacemaker is again seen with previous sternotomy changes and mild cardiomegaly. MEDIASTINUM:Normal. No visible mass or adenopathy. BONES:An old fracture deformity is partially visualized of the right humeral head. OTHER:A round calcific density is again noted in the right axillary region. A round metallic density overlies the left upper to mid abdomen likely represents artifact. CONCLUSION:Left-sided pacemaker and previous sternotomy changes with mild cardiomegaly without acute cardiopulmonary disease. Dictated by: Frank Cool M.D. on 04/24/2019 at 02:30 PM
[2019-04-24 14:57] LABS: ALANINE AMINOTRANSFERASE(ML) 15 U/L (12-78); ALKALINE PHOSPHATASE 60 U/L (50-136); ASPARTATE AMINO TRANSFERASE 18 U/L (0-35); CALCIUM 9.5 mg/dL (8.4-10.5); CARBON DIOXIDE 30.6 mmol/L (20.0-32); GLUCOSE 168 mg/dL (70-110)
== END 2019-04-24 15:30 | disposition home or self-care (01) ==
LOC: ER 13:29 → EDBD 13:29 → ER 15:30
DX: J44.9 Chronic obstructive pulmonary disease, unspecified (principal); I11.0 Hypertensive heart disease with heart failure; I50.9 Heart failure, unspecified; K21.9 Gastro-esophageal reflux disease without esophagitis; E07.9 Disorder of thyroid, unspecified; E11.9 Type 2 diabetes mellitus without complications; E78.00 Pure hypercholesterolemia, unspecified; Z79.899 Other long term (current) drug therapy; Z88.5 Allergy status to narcotic agent; Z90.710 Acquired absence of both cervix and uterus; Z95.0 Presence of cardiac pacemaker
CPT/HCPCS: 36415; 71045; 80053; 82550; 82553; 83880; 84484; 85025; 85610; 85730; 93005; 99285

== ENCOUNTER 2019-07-17 15:23 | Emergency (ER) | payer MEDICARE ==
[~2019-07-17] VITALS: Ht 170.2 cm; Wt 54.4 kg
[2019-07-17 15:38] VITALS: BP 168/64
[2019-07-17 15:45] VITALS: BP 168/64
--- NOTE | 2019-07-17 15:50 | ER.PDOC ---
General Chief Complaint: Extremities Stated Complaint: RIGHT ARM PAIN Time seen by MD: 15:50 Source: patient, family Exam Limitations: no limitations History of Present Illness Initial Comments Pt states she broke her right upper arm and right shoulder months ago and Dr Nguyễn "cleared her." Pt states the pain is worsening and limited movement of the right arm. Pt denies falling again. Pt states "they are still broken and I am in pain." Pt states she is taking 2 baby ASA every 6 hours for pain Occurred: other Where: home Severity: moderate Modifying Factors: pain on movement Allergies: Coded Allergies: codeine (Verified Allergy, Unknown, 03/29/17) Home Meds Reported Medications Carvedilol 25MG (COREG 25MG) 25 Mg Tablet, 1 TAB PO BID, #60 TAB 5 Refills 05/27/16 Pantoprazole Sodium (PANTOPRAZOLE SODIUM) 40 Mg Tablet.dr, 1 TAB PO DAILY, #30 TAB 3 Refills 05/27/16 Atorvastatin 40MG (LIPITOR 40MG) 40 Mg Tablet, 1 TAB PO HS, #90 TAB 1 Refill 05/27/16 Glyburide/Metformin Hcl (GLYBURIDE-METFORMIN 5-500 MG) 1 Each Tablet, 1 EACH PO DAILY, TABLET 05/27/16 Spironolactone 50MG (ALDACTONE 50MG) 50 Mg Tablet, 1 TAB PO DAILY, #30 TAB 3 Refills 05/27/16 Furosemide (FUROSEMIDE) 40 Mg Tablet, 1 TAB PO DAILY, #30 TAB 5 Refills 05/27/16 Sacubitril/Valsartan (Entresto 49 mg-51 mg Tablet) 1 Each Tablet, 1 EACH PO DAILY, TABLET 05/27/16 Levothyroxine Sodium (LEVOTHYROXINE SODIUM) 75 Mcg Tablet, 1 TAB PO DAILY, #30 TAB 5 Refills 05/27/16 Past Medical History Medical History: arrhythmia, asthma, congestive heart failure, diabetes, GERD, high cholesterol, hypertension, thyroid disease Surgical History: coronary bypass surgery, pacemaker/ICD Social History Drug Use: none Review of Systems Constitutional: no symptoms reported EENTM: no symptoms reported Respiratory: no symptoms reported Cardiovascular: no symptoms reported Gastrointestinal: no symptoms reported Genitourinary: no symptoms reported Musculoskeletal: see HPI Skin: no symptoms reported All Other Systems: Reviewed and Negative Physical Exam General Appearance: Alert, No Apparent Distress Hand: nml inspection, non-tender Wrist: nml inspection, non-tender, nml ROM Forearm/Elbow: nml inspection, non-tender, nml ROM Arm/Shoulder: tenderness, limited ROM by pain Neuro/Vasc/Tendon: sensation nml, motor nml, no vascular compromise, tendon function nml Skin: warm/dry Head/ENT: nml inspection, pharynx nml Neck/Back: nml inspection, non-tender Respiratory: chest non-tender, breath sounds nml CVS: heart sounds normal Abdomen: non-tender Results/Orders Results/Orders Orders - CAT DOUGLAS SHOP STEWARD Xr Shoulder Rt 2v (07/17/19 16:05) Vital Signs Date Time Temp Pulse Resp B/P (MAP) Pulse Ox O2 Delivery O2 Flow Rate FiO2 07/17/19 15:58 97.6 74 14 07/17/19 15:58 97.6 74 14 168/64 (98) 100 Room Air 07/17/19 15:45 97.6 74 14 168/64 (98) 100 Room Air 07/17/19 15:38 97.6 74 14 100 Departure Time of Disposition: 16:48 Disposition: 01 HOME, SELF-CARE Impression: Primary Impression: Shoulder pain, right Additional Impression: Chronic fracture Condition: Stable Patient Instructions: Shoulder Exercises, Generic, SportsMed Referrals: ABDIRASHID VELÁZQUEZ SHOP STEWARD (PCP) PRIMARY CARE PROVIDER Additional Instructions: Return if symptoms worsen. See PCP as this week for follow up. Pt agrees to take Ibuprofen 400 mg every 4-6 hours as needed for pain and pt agrees RICE Duration or Time Spent with Pa: 18 minutes Return to Work/School Can a patient return to work?: No Can a patient return to school: No Problem Qualifiers Primary Impression: Shoulder pain, right Chronicity: acute Qualified Codes: M25.511 - Pain in right shoulder CAT DOUGLAS NP Jul 17, 2019 15:50
[2019-07-17 15:58] VITALS: BP 168/64
--- NOTE | 2019-07-17 16:35 | DIREP ---
PROCEDURE:XRAY SHOULDER MIN 2 VWS-RT COMPARISON:[facility], , XRAY SHOULDER MIN 2 VWS-RT, 12/04/2018, 10:58 AM. INDICATIONS:pain, injury FINDINGS: BONES:Humeral neck fracture with rotation impaction of the humeral head appears similar to previous study. Osteophytes at the glenoid. JOINTS:Normal glenohumeral and acromioclavicular joints. No evidence for dislocation. SOFT TISSUES:3 calcifications in the medial right arm unchanged. OTHER:Normal. 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 Dictated by: Mathieu Marsh M.D. on 07/17/2019 at 04:31 PM
== END 2019-07-17 16:54 | disposition home or self-care (01) ==
LOC: ER 15:23
DX: M84.421A Pathological fracture, right humerus, initial encounter for fracture (principal); M25.511 Pain in right shoulder; I11.0 Hypertensive heart disease with heart failure; I50.9 Heart failure, unspecified; E11.9 Type 2 diabetes mellitus without complications; K21.9 Gastro-esophageal reflux disease without esophagitis; E78.00 Pure hypercholesterolemia, unspecified; J45.909 Unspecified asthma, uncomplicated; Z95.0 Presence of cardiac pacemaker; Z79.899 Other long term (current) drug therapy; Z88.5 Allergy status to narcotic agent; Z79.84 Long term (current) use of oral hypoglycemic drugs
CPT/HCPCS: 99283; 73030-RT

== ENCOUNTER → 2019-08-14 | Outpatient (CLI) | payer MEDICARE ==
--- NOTE | 2019-08-14 15:47 | DIREP ---
PROCEDURE:XRAY SHOULDER MIN 2 VWS-RT COMPARISON:[facility], , XRAY SHOULDER MIN 2 VWS-RT, 07/17/2019, 04:06 PM. INDICATIONS:M25.511 PAIN IN RIGHT SHOULDER FINDINGS: BONES:Posttraumatic degenerative changes. Acute fracture. JOINTS:Normal glenohumeral and acromioclavicular joints. No evidence for dislocation. SOFT TISSUES:Unchanged rounded calcifications in the upper arm. OTHER:Normal. CONCLUSION:No acute findings. Advanced post traumatic degenerative changes of the proximal right humerus. Dictated by: Michel Huizar MD on 08/14/2019 at 03:39 PM
--- NOTE | 2019-08-14 16:18 | DIREP ---
PROCEDURE:XRAY HUMERUS MIN 2 VWS-RT COMPARISON:[facility], CR, XRAY SHOULDER MIN 2 VWS-RT, 12/04/2018, 10:58 AM. [facility], CR, XRAY SHOULDER MIN 2 VWS-RT, 08/14/2019, 01:50 PM. [facility], CR, XRAY SHOULDER MIN 2 VWS-RT, 07/17/2019, 04:06 PM. INDICATIONS:S42.201D FRACTURE OF UPPER END OF RT HUMERUS FINDINGS: BONES:Impacted fracture of the right proximal humerus. The fracture likely involves the surgical neck. When compared with the most recent examination no change in alignment of the proximal humerus. No fracture is seen involving the shaft of the right humerus. 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 JOINTS:Mild DJD in the right glenohumeral joint with impingement by downsloping acromion. SOFT TISSUES:Normal. OTHER:No additional findings. No right upper rib fractures or pneumothorax is seen. CONCLUSION:No fracture of the shaft of the right humerus. Fracture of the right proximal humerus with impaction, no change in alignment. Impingement by downsloping acromion. Dictated by: Tae Parsons MD on 08/14/2019 at 04:13 PM
== END | disposition home or self-care (01) ==
LOC: RAD 13:28
PROVIDERS: ATTEND Nurse Practitioner Family
DX: S42.201D Unspecified fracture of upper end of right humerus, subsequent encounter for fracture with routine healing (principal); M19.021 Primary osteoarthritis, right elbow; M19.011 Primary osteoarthritis, right shoulder; X58.XXXD Exposure to other specified factors, subsequent encounter
CPT/HCPCS: 73030-RT; 73060-RT

== ENCOUNTER 2019-10-22 19:01 | Emergency (ER) | payer MEDICARE ==
[~2019-10-22] VITALS: Ht 165.1 cm; Wt 54.4 kg
[2019-10-22 19:07] VITALS: BP 126/78
--- NOTE | 2019-10-22 19:13 | PCM.EKG ---
[facility] Test Date: 2019-10-22 Test Time: 19:02:47 Pat Name: SAMUEL POSADA Department: Room: Gender: F Circular Knitter: JENNIFER : 1940 Requested By: ALBERTO MENDOZA Order Number: [id number] Reading MD: Measurements Intervals [place] Rate: 73 P: NV: QRS: -53 QRSD: 142 T: 132 QT: 385 QTc: 425 Interpretive Statements Atrial fibrillation Left bundle branch block Baseline wander in lead(s) II,aVF Compared to ECG 04/24/2019 14:31:59 Left bundle-branch block now present Ectopic atrial rhythm no longer present First degree AV block no longer present Intraventricular conduction delay no longer present Left ventricular hypertrophy no longer present Q waves no longer present T-wave abnormality no longer present Possible ischemia no longer present Please click the below link to view image of tracing.
[2019-10-22] MEDS ORDERED: LASIX IV STA (19:18)
[2019-10-22 19:21] VITALS: BP 140/70
--- NOTE | 2019-10-22 19:26 | ER.PDOC ---
General Chief Complaint: Palpitations Stated Complaint: FLUID OVERLOAD/PALP Time seen by MD: 19:00 Source: patient Exam Limitations: no limitations History of Present Illness Timing/Duration: 1 hour Quality: fast, pounding heart beat, irregular Activities at Onset: none History of: A-FIB Modifying Factors: movement, rest Associated Symptoms: shortness of breath Prior symptoms/Treatment: Similar symptoms previous Allergies: Coded Allergies: codeine (Verified Allergy, Unknown, 03/29/17) Home Meds Reported Medications Carvedilol 25MG (COREG 25MG) 25 Mg Tablet, 1 TAB PO BID, #60 TAB 5 Refills 05/27/16 Pantoprazole Sodium (PANTOPRAZOLE SODIUM) 40 Mg Tablet.dr, 1 TAB PO DAILY, #30 TAB 3 Refills 05/27/16 Atorvastatin 40MG (LIPITOR 40MG) 40 Mg Tablet, 1 TAB PO HS, #90 TAB 1 Refill 05/27/16 Glyburide/Metformin Hcl (GLYBURIDE-METFORMIN 5-500 MG) 1 Each Tablet, 1 EACH PO DAILY, TABLET 05/27/16 Spironolactone 50MG (ALDACTONE 50MG) 50 Mg Tablet, 1 TAB PO DAILY, #30 TAB 3 Refills 05/27/16 Furosemide (FUROSEMIDE) 40 Mg Tablet, 1 TAB PO DAILY, #30 TAB 5 Refills 05/27/16 Sacubitril/Valsartan (Entresto 49 mg-51 mg Tablet) 1 Each Tablet, 1 EACH PO DAILY, TABLET 05/27/16 Levothyroxine Sodium (LEVOTHYROXINE SODIUM) 75 Mcg Tablet, 1 TAB PO DAILY, #30 TAB 5 Refills 05/27/16 Past Medical History Medical History: Paranoia, congestive heart failure, GERD, high cholesterol, hypertension, thyroid disease Surgical History: coronary bypass surgery, pacemaker/ICD Social History Alcohol Use: none Drug Use: none Reviewed Nursing Reviewed: Vital Signs, Abn. Noted All Other Systems: Reviewed and Negative Physical Exam General Appearance: No Apparent Distress Neck: Non-Tender, Full Range of Motion, Supple, Normal Inspection Respiratory: chest non-tender, lungs clear, normal breath sounds, no respiratory distress, no accessory muscle use Cardiovascular: Irregularly Irregular Gastrointestinal: Normal Bowel Sounds, No Organomegaly, No Pulsatile Mass, Non Tender, Soft Extremities: Pedal Edema, Swelling Neurologic/Psychiatric: mattress spring encaser II-XII NML as Tested, No Motor/Sensory Deficits, Alert, Normal Mood/Affect, Oriented x 3 Skin: Normal Color, Warm/Dry Lymphatic: No Adenopathy Results/Orders Results/Orders Orders - ALBERTO MENDOZA MD Cbc With Auto Diff (10/22/19 19:10) Comprehensive Metabolic Panel (10/22/19 19:10) Creatine Kinase (10/22/19 19:10) Creatine Kinase Mb (10/22/19 19:10) Troponin I (10/22/19 19:10) Probnp B-Type Composition Mixer (10/22/19 19:10) PT (10/22/19 19:10) Partial Thromboplastin Time. (10/22/19 19:10) D-Dimer (10/22/19 19:10) Ekg-Routine (10/22/19 19:10) Xr Chest 2v (10/22/19 19:10) Vital Signs Date Time Temp Pulse Resp B/P (MAP) Pulse Ox O2 Delivery O2 Flow Rate FiO2 10/22/19 19:07 98.7 82 18 10/22/19 19:07 98.7 82 18 97 Departure Time of Disposition: 21:00 Disposition: 01 HOME, SELF-CARE Impression: Primary Impression: Palpitations Additional Impression: CHF (congestive heart failure) Condition: Improved Referrals: ABDIRASHID VELÁZQUEZ PLANER OPERATOR (PCP) PRIMARY CARE PROVIDER Additional Instructions: ADMISSSION/ TRANSFER OFFERED Duration or Time Spent with Pa: 20 M Problem Qualifiers ALBERTO MENDOZA MD October 22, 2019 19:26
[2019-10-22] MEDS ORDERED: LASIX ONE (19:29)
[2019-10-22 19:31] LABS: BASOPHIL % 0.3 % (0.0-0.2); EOSINOPHIL % 0.2 % (0.0-5.0); LYMPHOCYTES # 0.75 10^3/uL1 (1.0-4.8); MONOCYTES # 0.4 10^3/uL (0.3-0.8); MONOCYTES % 6.9 % (5.0-12.0); NEUTROPHILS % 80.4 % (41.0-85.0); PLATELET COUNT 179 10^3/uL (150-400); RED CELL DISTRIBUTION WIDTH 13.1 % (11.5-14.5)
[2019-10-22 19:53] LABS: ALANINE AMINOTRANSFERASE(ML) 26 U/L (12-78); ALKALINE PHOSPHATASE 44 U/L (50-136); ASPARTATE AMINO TRANSFERASE 15 U/L (0-35); CALCIUM 8.9 mg/dL (8.4-10.5); CARBON DIOXIDE 25.6 mmol/L (20.0-32); GLUCOSE 268 mg/dL (70-110)
--- NOTE | 2019-10-22 19:56 | DIREP ---
PROCEDURE:CHEST 2 VIEWS COMPARISON:[facility], CR, XRAY CHEST SINGLE VW, 04/24/2019, 02:10 PM. INDICATIONS:dyspnea FINDINGS: LUNGS/PLEURA:No significant pulmonary parenchymal abnormalities. No effusions. VASCULATURE:Normal. Unremarkable pulmonary vasculature. CARDIAC:Previous CABG. Left-sided AICD device in place. MEDIASTINUM:Calcification in the aortic arch. BONES:Arthritic change right shoulder. Previous study demonstrated a new fracture in the right humeral head. OTHER:Monitor leads in place. Surgical clips right lower neck. CONCLUSION:No acute cardiopulmonary abnormalities. No change from previous study. Dictated by: Zachery Durant M.D. on 10/22/2019 at 07:53 PM
[2019-10-22 20:20] VITALS: BP 126/52
--- NOTE | 2019-10-22 20:22 | NUR ---
UPDATE IN PT ROOM WITH DR. MENDOZA AT THIS TIME. PT DENIES STAYING IN HOSPITAL FOR OBSERVATION AT THIS TIME. INSTRUCTIONS WERE EXPLAINED TO PT AT THIS TIME AND PT VERBALIZES UNDERSTANDING.
--- NOTE | 2019-10-22 20:32 | NUR ---
CALLED ANDRESSA RODRIGUEZ TO COME AND AUTOMATIC BOW MAKER MACHINE TENDER
== END 2019-10-22 20:58 | disposition home or self-care (01) ==
LOC: EDBD 19:01 → ER 19:01
DX: I11.0 Hypertensive heart disease with heart failure (principal); I50.9 Heart failure, unspecified; I48.91 Unspecified atrial fibrillation; K21.9 Gastro-esophageal reflux disease without esophagitis; E78.00 Pure hypercholesterolemia, unspecified; E07.9 Disorder of thyroid, unspecified; Z79.899 Other long term (current) drug therapy; Z88.5 Allergy status to narcotic agent; Z95.0 Presence of cardiac pacemaker
CPT/HCPCS: 36415; 71046; 80053; 82550; 82553; 83880; 84484; 85025; 85379; 85610; 85730; 93005; 96374; 99285; J1940

== ENCOUNTER 2019-11-18 11:42 | Emergency (ER) | payer MEDICARE ==
[~2019-11-18] VITALS: Ht 165.1 cm; Wt 54.4 kg
[2019-11-18 11:58] VITALS: BP_SYST 113; BP_SYST 20; BP_DIAS 113; BP_DIAS 54; BP_DIAS 56
--- NOTE | 2019-11-18 11:58 | NUR ---
ARRIVAL PATIENT ARRIVED TO ED5 VIA W/C, C/O OF SHORTNESS OF BREATH AND DIFFICULTY HEARING FOR THE PAST SEVERAL DAYS, PATIENT WAS BROUGHT TO THE ED AND DROPPED OFF BY HER FAMILY, PATIENT ATTEMPTED TO ANSWER QUESTIONS BUT WAS COMPLAINING ABOUT BEING COLD, BLANKET PROVIDED,SNAGGER APPLIED AND VITAL SIGNS OBTAINED.
[2019-11-18 12:02] VITALS: BP 113/54
--- NOTE | 2019-11-18 12:19 | PCM.EKG ---
[facility] Test Date: 2019-11-18 Test Time: 11:59:26 Pat Name: SAMUEL POSADA Department: Room: Gender: F Pump Erector: DEBBIE : 1940 Requested By: JORDAN SALAZAR Order Number: [id number] Reading MD: Jordan Salazar Measurements Intervals [place] Rate: 74 P: ID: QRS: -66 QRSD: 152 T: 107 QT: 424 QTc: 471 Interpretive Statements Atrial fibrillation Left bundle branch block Compared to ECG 10/22/2019 19:02:47 No significant changes Electronically Signed On 11-23-2019 18:50:25 CDT by Jordan Salazar Please click the below link to view image of tracing.
[2019-11-18 12:41] VITALS: BP 111/56
[2019-11-18 12:42] LABS: BASOPHIL % 0.2 % (0.0-0.2); LYMPHOCYTES # 0.86 10^3/uL1 (1.0-4.8); MEAN CORP HGB 29.7 pg (26-34); MONOCYTES # 0.2 10^3/uL (0.3-0.8); MONOCYTES % 5.6 % (5.0-12.0); NEUTROPHIL # 3.2 10^3/uL (1.8-7.7); NEUTROPHILS % 74.2 % (41.0-85.0); PLATELET COUNT 192 10^3/uL (150-400); RED CELL DISTRIBUTION WIDTH 12.9 % (11.5-14.5)
[2019-11-18 13:12] LABS: CALCIUM 9.1 mg/dL (8.4-10.5); CARBON DIOXIDE 35.3 mmol/L (20.0-32)
--- NOTE | 2019-11-18 13:23 | DIREP ---
PROCEDURE:CHEST 1 VIEW COMPARISON:[facility], CR, XRAY SHOULDER MIN 2 VWS-RT, 08/14/2019, 01:50 PM. [facility], CR, XRAY CHEST 2 VWS, 10/22/2019, 07:17 PM. INDICATIONS:dyspnea FINDINGS: LUNGS/PLEURA:No significant pulmonary parenchymal abnormalities. No effusions. VASCULATURE:Normal. Unremarkable pulmonary vasculature. CARDIAC:Mild cardiomegaly. Implanted single lead pacing device over left chest. CABG changes. MEDIASTINUM:Normal. No visible mass or adenopathy. BONES:No acute pathology. Scoliosis and degenerative changes of the spine. Old fracture of the proximal right humeral neck. OTHER:Negative. CONCLUSION:Mild cardiomegaly. No pulmonary infiltrate or pleural effusion. Dictated by: Raúl Hansen M.D. on 11/18/2019 at 01:15 PM
[2019-11-18 13:47] VITALS: BP 117/47
--- NOTE | 2019-11-18 14:40 | ER.PDOC ---
General Chief Complaint: General Complaint Stated Complaint: SOB, HEARING DIFFICULTY, CONFUSION Time seen by MD: 14:55 Source: patient Exam Limitations: no limitations History of Present Illness Timing/Duration: 24 hours Severity: mild Activities at Onset: activity/exertion, rest Prior Episodes/Possible Cause: frequent episodes Modifying Factors: improves with albuterol inhaler, improves with rest Allergies: Coded Allergies: codeine (Verified Allergy, Unknown, 03/29/17) Home Meds Reported Medications Carvedilol 25MG (COREG 25MG) 25 Mg Tablet, 1 TAB PO BID, #60 TAB 5 Refills 05/27/16 Pantoprazole Sodium (PANTOPRAZOLE SODIUM) 40 Mg Tablet.dr, 1 TAB PO DAILY, #30 TAB 3 Refills 05/27/16 Atorvastatin 40MG (LIPITOR 40MG) 40 Mg Tablet, 1 TAB PO HS, #90 TAB 1 Refill 05/27/16 Glyburide/Metformin Hcl (GLYBURIDE-METFORMIN 5-500 MG) 1 Each Tablet, 1 EACH PO DAILY, TABLET 05/27/16 Spironolactone 50MG (ALDACTONE 50MG) 50 Mg Tablet, 1 TAB PO DAILY, #30 TAB 3 Refills 05/27/16 Furosemide (FUROSEMIDE) 40 Mg Tablet, 1 TAB PO DAILY, #30 TAB 5 Refills 05/27/16 Sacubitril/Valsartan (Entresto 49 mg-51 mg Tablet) 1 Each Tablet, 1 EACH PO DAILY, TABLET 05/27/16 Levothyroxine Sodium (LEVOTHYROXINE SODIUM) 75 Mcg Tablet, 1 TAB PO DAILY, #30 TAB 5 Refills 05/27/16 Past Medical History Medical History: cardiac problems, hypertension Surgical History: coronary bypass surgery, other Social History Alcohol Use: none Drug Use: none Reviewed Nursing Reviewed: Vital Signs, Abn. Noted Review of Systems All Other Systems: Reviewed and Negative Physical Exam General Appearance: No Apparent Distress, WD/WN HEENT: PERRL/EOMI, Normal ENT Inspection, TMs Normal, Pharynx Normal Neck: Non-Tender, Full Range of Motion, Supple, Normal Inspection Respiratory: chest non-tender, lungs clear, normal breath sounds, no respiratory distress, no accessory muscle use Cardiovascular: Normal Peripheral Pulses, Regular Rate, Rhythm, No Edema, No Gallop, No JVD, No Murmur Gastrointestinal: Normal Bowel Sounds, No Organomegaly, No Pulsatile Mass, Non Tender, Soft Extremities: Normal Range of Motion, Non-Tender, Normal Inspection, No Pedal Edema, No Calf Tenderness, Normal Capillary Refill Neurologic/Psychiatric: structural architect II-XII NML as Tested, No Motor/Sensory Deficits, Alert, Normal Mood/Affect, Oriented x 3 Lymphatic: No Adenopathy Results/Orders Results/Orders Orders - ALBERTO MENDOZA MD Cbc With Auto Diff (11/18/19 12:16) Comprehensive Metabolic Panel (11/18/19 12:16) Creatine Kinase (11/18/19 12:16) Creatine Kinase Mb (11/18/19 12:16) Troponin I (11/18/19 12:16) Probnp B-Type Psychometric Examiner (11/18/19 12:16) PT (11/18/19 12:16) Partial Thromboplastin Time. (11/18/19 12:16) Helicobacter Pylori (11/18/19 12:16) D-Dimer (11/18/19 12:16) Xr Chest 1v (11/18/19 12:16) Ekg-Routine (11/18/19 12:16) Urinalysis (11/18/19 12:16) Vital Signs Date Time Temp Pulse Resp B/P (MAP) Pulse Ox O2 Delivery O2 Flow Rate FiO2 11/18/19 13:47 97.6 68 20 94 11/18/19 12:41 97.6 88 20 94 11/18/19 12:02 97.6 84 20 93 11/18/19 11:58 97.6 84 56 11/18/19 11:58 97.6 84 20 93 Laboratory Tests Test 11/18/19 12:35 White Blood Count 4.3 10^3/uL (4.5-11.0) L Red Blood Count 4.17 10^6/uL (4.00-5.20) Hemoglobin 12.4 g/dL (12.0-15.0) # Hematocrit 35.8 % (36.0-46.0) L Mean Corpuscular Volume 85.9 fL (78-100) Mean Corpuscular Hemoglobin 29.7 pg (26-34) Mean Corpuscular Hemoglobin Concent 34.6 g/dL (33-36.5) Red Cell Distribution Width 12.9 % (11.5-14.5) Platelet Count 192 10^3/uL (150-400) Mean Platelet Volume 9.8 fL (7.8-11.0) Neutrophils (%) (Auto) 74.2 % (41.0-85.0) Lymphocytes (%) (Auto) 20.0 % (24.0-44.0) L Monocytes (%) (Auto) 5.6 % (5.0-12.0) Neutrophils # (Auto) 3.2 10^3/uL (1.8-7.7) Lymphocytes # (Auto) 0.86 10^3/uL1 (1.0-4.8) L Monocytes # (Auto) 0.2 10^3/uL (0.3-0.8) L Absolute Immature Granulocyte (auto 0 10^3 u/L (0-2) Absolute Eosinophils (auto) 0.0 10^3/uL (0.0-0.2) Immature Granulocytes % 0.00 % (0.00-0.50) Eosinophils % 0.0 % (0.0-5.0) Basophils % 0.2 % (0.0-0.2) Basophils # 0.0 10^3/uL (0.0-0.1) Prothrombin Time 12.1 SEC (9.3-11.3) H Prothrombin Time INR (Non-Therap) 1.2 Activated Partial Thromboplast Time 22.3 SEC (24.67-30.72) D-Dimer 2.32 mg/L (0.19-0.49) *H Sodium Level 133 mmol/L (132-145) Potassium Level 3.0 mmol/L (3.6-5.2) L Chloride Level 92.0 mmol/L (96-109) L Carbon Dioxide Level 35.3 mmol/L (20.0-32) H Anion Gap 8.7 Blood Urea Nitrogen 27 mg/dL (7-18) H Creatinine 1.46 mg/dL (0.59-1.40) H Estimated GFR () 41.9 (>/=60) Est GFR (CKD-EPI)(Non-Afr [place]) 34.6 (>/=60) BUN/Creatinine Ratio 18.0 Glucose Level 221 mg/dL (70-110) H Calcium Level 9.1 mg/dL (8.4-10.5) Total Bilirubin 0.9 mg/dL (0.2-1.0) Aspartate Amino Transferase (AST) 23 U/L (0-35) Alanine Aminotransferase (ALT) 25 U/L (12-78) Alkaline Phosphatase 67 U/L (50-136) Total Creatine Kinase 70 U/L (26-192) Creatine Kinase MB 1.4 ng/mL (0.5-3.6) Troponin I 0.04 ng/mL (0.00-0.05) Pro-B-Type Natriuretic Peptide 54959 pg/mL (0-450) H Total Protein 6.8 g/dL (6.4-8.2) Albumin 3.7 g/dL (3.4-5.0) Globulin 3.1 Helicobacter pylori Screen NEGATIVE (NEGATIVE) Departure Time of Disposition: 14:33 Disposition: 01 HOME, SELF-CARE Impression: Primary Impression: Chronic obstructive pulmonary disease Condition: Stable Referrals: ABDIRASHID VELÁZQUEZ CORRECTIONAL OFFICER LIEUTENANT (PCP) PRIMARY CARE PROVIDER Duration or Time Spent with Pa: Rebecca M ALBERTO MENDOZA MD Nov 18, 2019 14:40
[2019-11-27] MEDS ORDERED: METF500T17 PO (17:35)
[2019-11-29] MEDS ORDERED: ALPR0.5T6 PO (13:02)
== END 2019-11-18 14:56 | disposition home or self-care (01) ==
LOC: ER 11:42
DX: J44.9 Chronic obstructive pulmonary disease, unspecified (principal); I10 Essential (primary) hypertension; Z79.899 Other long term (current) drug therapy
CPT/HCPCS: 36415; 71045; 80053; 82550; 82553; 83880; 84484; 85025; 85379; 85610; 85730; 86677; 93005; 99285

== ENCOUNTER 2019-12-01 22:01 | Emergency (ER) | payer MEDICARE ==
[~2019-12-01] VITALS: Ht 167.6 cm; Wt 70.3 kg
[~2019-12-01 22:01] MED LIST changes: +ALPR0.5T6 PO; +METF500T17 PO
[2019-12-01 22:18] VITALS: BP 103/40
--- NOTE | 2019-12-01 22:43 | ER.PDOC ---
General Chief Complaint: Dyspnea/Respdistress Stated Complaint: ABD PAIN Time seen by MD: 22:40 Source: family () Exam Limitations: clinical condition History of Present Illness Initial Comments told me that patient complained of abdominal pain this evening. Patient does not know why she is here. No nausea, vomiting, fever or chills. Timing/Duration: 1-3 hours Severity/Quality: mild, burning Radiation: no radiation Associated Symptoms: denies symptoms Exacerbated by: nothing Relieved By: nothing Allergies: Coded Allergies: codeine (Verified Allergy, Unknown, 03/29/17) Home Meds Active Scripts Alprazolam (ALPRAZOLAM) 0.5 Mg Tablet, 0.5 MG PO Q6H PRN for ANXIETY MDD 2 mg for 30 Days, #30 TAB 1 Refill Prov:ISMAEL SWEET MD 11/29/19 Reported Medications Metformin Hcl (METFORMIN HCL) 500 Mg Tablet, 1 TAB PO DAILY24, #180 TAB 3 Refills 11/27/19 Carvedilol 25MG (COREG 25MG) 25 Mg Tablet, 1 TAB PO BID, #60 TAB 5 Refills 05/27/16 Pantoprazole Sodium (PANTOPRAZOLE SODIUM) 40 Mg Tablet.dr, 1 TAB PO DAILY, #30 TAB 3 Refills 05/27/16 Atorvastatin 40MG (LIPITOR 40MG) 40 Mg Tablet, 1 TAB PO HS, #90 TAB 1 Refill 05/27/16 Spironolactone 50MG (ALDACTONE 50MG) 50 Mg Tablet, 1 TAB PO DAILY, #30 TAB 3 Refills 05/27/16 Furosemide (FUROSEMIDE) 40 Mg Tablet, 1 TAB PO DAILY, #30 TAB 5 Refills 05/27/16 Sacubitril/Valsartan (Entresto 49 mg-51 mg Tablet) 1 Each Tablet, 1 EACH PO DAILY, TABLET 05/27/16 Levothyroxine Sodium (LEVOTHYROXINE SODIUM) 75 Mcg Tablet, 1 TAB PO DAILY, #30 TAB 5 Refills 05/27/16 Discontinued Reported Medications Glyburide/Metformin Hcl (GLYBURIDE-METFORMIN 5-500 MG) 1 Each Tablet, 1 EACH PO DAILY, TABLET 05/27/16 Vital Signs First Vital Signs Date Time Temp Pulse Resp B/P (MAP) Pulse Ox O2 Delivery O2 Flow Rate FiO2 12/01/19 22:18 98.1 81 16 12/01/19 22:18 95 Last Vital Signs Date Time Temp Pulse Resp B/P (MAP) Pulse Ox O2 Delivery O2 Flow Rate FiO2 12/01/19 22:18 98.1 81 16 95 Past Medical History Medical History: cardiac problems, hypertension Surgical History: coronary bypass surgery, pacemaker/ICD Social History Alcohol Use: none Drug Use: none Constitutional: no symptoms reported Respiratory: no symptoms reported Cardiovascular: no symptoms reported Gastrointestinal: see HPI Genitourinary: no symptoms reported Musculoskeletal: no symptoms reported All Other Systems: Reviewed and Negative Physical Exam General Appearance: No Apparent Distress, WD/WN Neck: Non-Tender, Full Range of Motion, Supple, Normal Inspection Respiratory: chest non-tender, lungs clear, normal breath sounds, no respiratory distress, no accessory muscle use Cardiovascular: Normal Peripheral Pulses, Regular Rate, Rhythm, No Edema, No Gallop, No JVD, No Murmur Gastrointestinal: Normal Bowel Sounds, No Organomegaly, No Pulsatile Mass, Tenderness (mild generalized) Back: Normal Inspection, No CVA Tenderness, No Vertebral Tenderness Extremities: Normal Range of Motion, Non-Tender, Normal Inspection, No Calf T enderness, Normal Capillary Refill, Pelvis Stable, Pedal Edema Neurologic/Psychiatric: 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 (12/01/19 22:30) Urinalysis (12/01/19 22:30) Ct Abd/Pelvis Wo Iv Contrast (12/01/19 22:30) Ekg-Routine (12/01/19 22:33) Arterial Blood Gas (12/01/19 23:08) Insulin Regular, Human (Humulin R) (12/01/19 23:09) Insulin Regular, Human (Humulin R) (12/01/19 23:19) 0.9 % Sodium Chloride (Ns 250ml) (12/01/19 23:46) 0.9 % Sodium Chloride (Ns 1000ml) (12/01/19 23:47) 0.9 % Sodium Chloride (Ns 1000ml) (12/01/19 23:49) Urine Culture (12/01/19 23:42) Vital Signs Date Time Temp Pulse Resp B/P (MAP) Pulse Ox O2 Delivery O2 Flow Rate FiO2 12/01/19 22:18 98.1 81 16 95 12/01/19 22:18 98.1 81 16 95 12/01/19 22:18 98.1 81 16 Administered Medications Medications (Trade) Dose Ordered Sig/Mayur Route PRN Reason Start Time Stop Time Status Last Admin Dose Admin Insulin Human Regular (Humulin R) 12 unit STAT STAT SQ 12/01/19 23:09 12/01/19 23:10 DC 12/01/19 23:25 12 UNIT Sodium Chloride 1,000 ml @ 1,200 mls/hr Q50M STAT IV 12/01/19 23:49 12/02/19 00:38 12/02/19 00:01 1,200 MLS/HR Laboratory Tests Test 12/01/19 22:40 12/01/19 23:42 White Blood Count 5.3 10^3/uL (4.5-11.0) Red Blood Count 3.51 10^6/uL (4.00-5.20) L Hemoglobin 10.5 g/dL (12.0-15.0) L Hematocrit 30.3 % (36.0-46.0) L Mean Corpuscular Volume 86.3 fL (78-100) Mean Corpuscular Hemoglobin 29.9 pg (26-34) Mean Corpuscular Hemoglobin Concent 34.7 g/dL (33-36.5) Red Cell Distribution Width 13.1 % (11.5-14.5) Platelet Count 150 10^3/uL (150-400) Mean Platelet Volume 11.0 fL (7.8-11.0) Neutrophils (%) (Auto) 66.7 % (41.0-85.0) Lymphocytes (%) (Auto) 26.4 % (24.0-44.0) Monocytes (%) (Auto) 6.3 % (5.0-12.0) Neutrophils # (Auto) 3.5 10^3/uL (1.8-7.7) Lymphocytes # (Auto) 1.39 10^3/uL1 (1.0-4.8) Monocytes # (Auto) 0.3 10^3/uL (0.3-0.8) Absolute Immature Granulocyte (auto 0.01 10^3 u/L (0-2) Absolute Eosinophils (auto) 0.0 10^3/uL (0.0-0.2) Immature Granulocytes % 0.20 % (0.00-0.50) Eosinophils % 0.0 % (0.0-5.0) Basophils % 0.4 % (0.0-0.2) H Basophils # 0.0 10^3/uL (0.0-0.1) Prothrombin Time 11.0 SEC (9.3-11.3) Prothrombin Time INR (Non-Therap) 1.1 Activated Partial Thromboplast Time 22.7 SEC (24.67-30.72) Sodium Level 130 mmol/L (132-145) L Potassium Level 3.9 mmol/L (3.6-5.2) Chloride Level 94.0 mmol/L (96-109) L Carbon Dioxide Level 30.2 mmol/L (20.0-32) Anion Gap 9.7 Blood Urea Nitrogen 59 mg/dL (7-18) H Creatinine 1.62 mg/dL (0.59-1.40) H Estimated GFR () 37.2 (>/=60) Est GFR (CKD-EPI)(Non-Afr [place]) 30.7 (>/=60) BUN/Creatinine Ratio 36.0 Glucose Level 434 mg/dL (70-110) *H Calcium Level 8.5 mg/dL (8.4-10.5) Total Bilirubin 0.4 mg/dL (0.2-1.0) Aspartate Amino Transferase (AST) 11 U/L (0-35) Alanine Aminotransferase (ALT) 17 U/L (12-78) Alkaline Phosphatase 62 U/L (50-136) Total Protein 5.5 g/dL (6.4-8.2) L Albumin 3.0 g/dL (3.4-5.0) L Globulin 2.5 Lipase 487 U/L (114-286) H Urine Collection Type VOID Urine Color YELLOW (YELLOW) Urine Appearance CLEAR (CLEAR) Urine Bilirubin NEGATIVE MG/DL (NEGATIVE) Urine Ketones NEGATIVE (NEGATIVE) Urine Specific [place] 1.010 (1.005-1.035) Urine pH 5.0 (5.0-6.0) Urine Protein NEGATIVE (NEGATIVE) Urine Urobilinogen NORMAL (NEGATIVE) Urine Nitrate NEGATIVE (NEGATIVE) Urine Leukocyte Esterase 100/ul 1+ (NEGATIVE) Urine Blood NEGATIVE (NEGATIVE) Urine RBC NONE SEEN RBC/HPF (NONE Urine WBC 2-5 WBC/HPF (0-2) Urine Squamous Epithelial Cells FEW #/HPF (FEW) Urine Bacteria FEW (NONE SEEN) H Urine Glucose 250 (NEGATIVE) H Progress Progress CT abdomen/pelvis: Cholelithiasis. 2. Postthoracotomy changes with moderate cardiomegaly and cardiac defibrillator. 3. Edema of subcutaneous tissues of the chest abdomen and pelvis possibly related to anasarca. 4. CT scan of the abdomen and pelvis is otherwise normal. The appendix is not visualized. Departure Time of Disposition: 00:08 Disposition: 01 HOME, SELF-CARE Impression: Primary Impression: Cholelithiases Additional Impressions: Uncontrolled diabetes mellitus UTI (urinary tract infection) Condition: Stable Referrals: ABDIRASHID VELÁZQUEZ [facility] RECRUITING INTERN (PCP) PRIMARY CARE PROVIDER Additional Instructions: Cipro F/U with your PCP in 2-3 days Return to ED if worsening pain or concerns Duration or Time Spent with Pa: 60 min Problem Qualifiers Primary Impression: Cholelithiases Cholelithiasis location: gallbladder Cholecystitis presence: without cholecystitis Biliary obstruction: without biliary obstruction Qualified Codes: K80.20 - Calculus of gallbladder without cholecystitis without obstruction Additional Impressions: Uncontrolled diabetes mellitus Diabetes mellitus type: other specified (including RACHEAL) Glycemic state: with hyperglycemia Qualified Codes: E13.65 - Other specified diabetes mellitus with hyperglycemia UTI (urinary tract infection) Urinary tract infection type: site unspecified Hematuria presence: without hematuria Qualified Codes: N39.0 - Urinary tract infection, site not specified SHANE DUARTE MD Dec 01, 2019 22:43
[2019-12-01 22:47] LABS: BASOPHIL % 0.4 % (0.0-0.2); LYMPHOCYTES # 1.39 10^3/uL1 (1.0-4.8); LYMPHOCYTES % 26.4 % (24.0-44.0); MEAN CORP HGB 29.9 pg (26-34); MONOCYTES # 0.3 10^3/uL (0.3-0.8); MONOCYTES % 6.3 % (5.0-12.0); NEUTROPHIL # 3.5 10^3/uL (1.8-7.7); NEUTROPHILS % 66.7 % (41.0-85.0); PLATELET COUNT 150 10^3/uL (150-400); RED CELL DISTRIBUTION WIDTH 13.1 % (11.5-14.5)
[2019-12-01 23:06] LABS: CALCIUM 8.5 mg/dL (8.4-10.5); CARBON DIOXIDE 30.2 mmol/L (20.0-32)
[2019-12-01] MEDS ORDERED: HUMULIN R SQ STA (23:09)
[2019-12-01] MEDS ORDERED: HUMULIN R ONE (23:19)
--- NOTE | 2019-12-01 23:29 | DIREP ---
PROCEDURE:CT ABDOMEN/PELVIS W/O CONTRAST COMPARISON:CT, CT-ABDOMEN /PELVIS W/O CONTRAST, 01/18/2019, 05:22 PM. INDICATIONS:Generalized abdominal pain TECHNIQUE:Axial images were created through the abdomen and pelvis without intravenous contrast material. No oral contrast was administered. Sagittal and coronal reconstructions were performed from source images. FINDINGS: LUNG BASES:Moderate cardiomegaly with defibrillator. Postthoracotomy changes with wire sutures in the sternum. No acute infiltrates. LIVER:Normal. No significant liver lesions are identified. BILIARY:Suspected cholelithiasis. The gallbladder wall is not well visualized however and gallbladder sonography could be of aid in confirmation. PANCREAS:Normal. No lesion, fluid collection, ductal dilatation, or atrophy. SPLEEN:Normal. No enlargement or focal lesion. ADRENALS:Normal. No mass or enlargement. URINARY TRACT:Normal. No focal lesions or hydronephrosis. AORTA/VASCULAR:Normal. No aneurysm. Extensive vascular calcifications throughout the chest, abdomen and pelvis. RETROPERITONEUM:Normal. No mass or adenopathy. BOWEL/MESENTERY:Limited by lack of oral contrast. Normal. There is no intestinal obstruction, free fluid, free air or mesenteric inflammatory changes. Appendix is not visualized. ABDOMINAL WALL:Normal. No mass or hernia. PELVIC ORGANS:Normal. No visible mass. Pelvic organs appropriate for patient age. BONES:Mild degenerative changes in the thoracolumbar spine. 3 mm anterior subluxation of L4 on L5. OTHER:Edema of the subcutaneous tissues throughout the chest abdomen and pelvis consistent with anasarca. CONCLUSION: 1. Cholelithiasis. 2. Postthoracotomy changes with moderate cardiomegaly and cardiac defibrillator. 3. Edema of subcutaneous tissues of the chest abdomen and pelvis possibly related to anasarca. 4. CT scan of the abdomen and pelvis is otherwise normal. The appendix is not visualized. Dictated by: Claude Reyes M.D. on 12/01/2019 at 11:17 PM
[2019-12-01 23:46] LABS: APPEARANCE,URINE CLEAR (CLEAR); UA COLOR YELLOW (YELLOW)
[2019-12-01] MEDS ORDERED: NS IV ONE (23:46)
[2019-12-01 23:47] LABS: BILIRUBIN,URINE NEGATIVE (NEGATIVE); UROBILINOGEN,URINE NORMAL (NEGATIVE)
[2019-12-01] MEDS ORDERED: NS 1000ML 1,000 ML ONE (23:47)
[2019-12-01] MEDS ORDERED: NS 1000ML 1,000 ML IV STA (23:49)
--- NOTE | 2019-12-02 00:21 | NUR ---
DAUGHTER CALLED JENNIFER, DAUGHTER OF PATIENT, STATES SHE IS COMING TO INFORMATION TECHNOLOGY MANAGER HER MOTHER. DRIVING FROM [employer]
[2019-12-02 00:30] LABS: ABG PCO2 50.2 mmHg (35.0-45.0); ABG PH 7.359 (7.350-7.450); BE(B) 1.5 mmol/L (-2.0-2.0); HCO3act 27.2 mmol/L (22.0-26.0)
--- NOTE | 2019-12-02 01:18 | NUR ---
IV DC'D TIP INTACT, NO BLEEDING
[2019-12-02 01:20] VITALS: BP 122/56
--- NOTE | 2019-12-02 12:10 | PCM.EKG ---
[facility] Test Date: 2019-12-01 Test Time: 22:32:42 Pat Name: SAMUEL POSADA Department: Room: Gender: F Auto Servicer: KAREN : 1940 Requested By: SHANE DUARTE Order Number: [id number] Reading MD: Measurements Intervals [place] Rate: 89 P: 0 CO: 140 QRS: -61 QRSD: 141 T: 111 QT: 396 QTc: 482 Interpretive Statements Unknown rhythm, irregular rate Left bundle branch block No previous ECG available for comparison Please click the below link to view image of tracing.
== END 2019-12-02 01:20 | disposition home or self-care (01) ==
LOC: ER 22:01
DX: E11.65 Type 2 diabetes mellitus with hyperglycemia (principal); N39.0 Urinary tract infection, site not specified; K80.20 Calculus of gallbladder without cholecystitis without obstruction; I10 Essential (primary) hypertension; Z79.4 Long term (current) use of insulin; Z79.899 Other long term (current) drug therapy; Z88.5 Allergy status to narcotic agent; Z95.0 Presence of cardiac pacemaker
CPT/HCPCS: 36415; 36600; 74176; 80053; 81000; 82803; 82948; 83690; 85025; 85610; 85730; 87086; 93005; 96360; 96372; 99285; J1815; J7030; J7050; 96361